=== PATIENT | female | born 1955 | race Caucasian/White ===

== ENCOUNTER → 2016-07-01 | Outpatient (CLI) | payer OTHER ==
[~2016-07-01] MED LIST: ACET-1311 PO; ATOR-22 PO; BACL10TA PO; BISA10SU5 RE; CHOL100010 PO; CPXI SQ; CYNI1000 SQ; DOCU100C31 PO; FURO40TA3 PO; GLAT1INJ INJ; HYDR-5688 PO; IPRASOL4 INH; LACTCAP3 PO; LISI-461 PO; LISI10TA PO; LORA-741 PO; MAGN400T6 PO; MGNO400 PO; MOML PO; OLAN10TA11 PO; OLAN1TAB13 PO; ONDA8TAB6 PO; PANC1CAP21 PO; PANCCAP2 PO; POTA-65 PO; POTA10TA PO; SENN1TAB65 PO; SERT-234 PO; SERT100T PO; SODIENE PR
--- NOTE | 2016-07-07 09:04 | CODING QUERY NO DIAGNOSIS ---
TREATMENT RENDERED WITHOUT A DIAGNOSIS : 1955 To promote full compliance with coding requirements relating to patient care, physician participation is requested in all cases of event mgr uncertainty. Please assist us with providing a diagnosis/symptom for the test(s) below: A diagnosis/symptom was not documented on your Order. A valid diagnosis/symptom is required to bill all insurances. Please remember that we are unable to code a diagnosis of rule out, probable, possible, questionable, or suspected. Tests that require a diagnosis: DOS: 07/01/16 * THYROID STIMULATING DIAGNOSIS: Provider Signature: Date: Thank you Dorcas Neumann Health Information Management Once completed, please kindly fax back to [phone] For questions please call [phone]
== END ==
LOC: C.LABUPUNI 10:47
PROVIDERS: ATTEND Family Medicine
DX: Z00.00 Encounter for general adult medical examination without abnormal findings (principal)

== ENCOUNTER → 2016-07-10 | Outpatient (CLI) | payer OTHER ==
[~2016-07-10] MED LIST changes: -GLAT1INJ INJ; -IPRASOL4 INH; -LISI10TA PO; -MAGN400T6 PO; -OLAN1TAB13 PO; -ONDA8TAB6 PO; -PANC1CAP21 PO; -POTA-65 PO; -SENN1TAB65 PO; -SERT-234 PO
[2016-07-10 08:45] LABS: BASO % 0.5 %; BASO ABS # 0.03 K/uL (0-0.2); COMPLETE YES; EOS % 3.6 %; HEMATOCRIT 31.6 % (37-47); IG% 0.2 %; LYMPH % 21.5 %; LYMPH ABS # 1.21 K/uL (1.2-3.4); MEAN CELL VOLUME 82.9 fL (80-100); MEAN CORPUSCULAR HEMOGLOBIN 26.2 pg (25-34); MEAN CORPUSCULAR HGB CONC 31.6 g/dl (32-36); MEAN PLATELET VOLUME 11.6 fL (7.4-10.4); NEUT % 68.2 %; PLATELET COUNT 180 K/uL (130-400); RED BLOOD COUNT 3.81 M/uL (4.2-5.4); WHITE BLOOD COUNT 5.63 K/uL (4.8-10.8)
[2016-07-10 08:53] LABS: ALT/SGPT 20 U/L (12-78); BLOOD UREA NITROGEN 22 mg/dl (7-18); BUN/CREATININE RATIO 22.5 (10-20); CALCIUM 9.3 mg/dl (8.5-10.1); CARBON DIOXIDE 29 mmol/L (21-32); CHLORIDE 103 mmol/L (98-107); CREATININE 0.99 mg/dl (0.60-1.20); GLUCOSE 135 mg/dl (70-99); POTASSIUM 4.3 mmol/L (3.5-5.1); SODIUM 140 mmol/L (136-145)
[2016-07-10 08:56] LABS: ALB/GLOB RATIO 0.7 (0.9-2); ALKALINE PHOSPHATASE 107 U/L (45-117); AST/SGOT 14 U/L (15-37)
== END ==
LOC: C.LABUPUNI 08:29
PROVIDERS: ATTEND Family Medicine
DX: G35 Multiple sclerosis (principal); L10.9 Pemphigus, unspecified

== ENCOUNTER → 2016-07-17 | Outpatient (CLI) | payer OTHER ==
[~2016-07-17] MED LIST changes: +GLAT1INJ INJ; +IPRASOL4 INH; +LISI10TA PO; +MAGN400T6 PO; +OLAN1TAB13 PO; +ONDA8TAB6 PO; +PANC1CAP21 PO; +POTA-65 PO; +SENN1TAB65 PO; +SERT-234 PO
[2016-07-17 09:12] LABS: CHOLESTEROL/HDL RATIO 3.1
== END ==
LOC: C.LABUPUNI 08:49
PROVIDERS: ATTEND Family Medicine
DX: E78.5 Hyperlipidemia, unspecified (principal)

== ENCOUNTER → 2016-08-08 | Outpatient (CLI) | payer OTHER ==
[2016-08-08 10:14] LABS: HEMATOCRIT 33.3 % (37-47)
[2016-08-08 10:26] LABS: FERRITIN 46.6 ng/ml (8.0-388.0)
--- NOTE | 2016-08-14 11:45 | CODING QUERY MEDICAL NECESSITY ---
CQSUPPORTING DIAGNOSIS NEEDED A supporting diagnosis is required for the test/procedure performed on this patient in order for us to be reimbursed by the patient's insurance. Please provide a supporting diagnosis for the following test/procedure listed below next to the test name along with your signature. *If there is no additional diagnosis for this patient that would support the following test/procedure please document that below next to the test/procedure. Test(s)/Procedure(s) that require a supporting diagnosis: [facility] 08/08/16 VITAMIN B12 SERUM IRON STUDY Provider Signature: Date: Thank you Bella Mello Health Information Management Once completed, please kindly fax back to [phone] For questions please call [phone]
== END ==
LOC: C.LABUPUNI 09:53
PROVIDERS: ATTEND Family Medicine
DX: I10 Essential (primary) hypertension (principal); E56.8 Deficiency of other vitamins; G35 Multiple sclerosis; D50.8 Other iron deficiency anemias

== ENCOUNTER → 2016-09-07 | Outpatient (CLI) | payer OTHER ==
[2016-09-07 10:11] LABS: HEMATOCRIT 32.8 % (37-47)
== END | disposition home or self-care (01) ==
LOC: C.LABUPUNI 08:56
PROVIDERS: ATTEND Family Medicine
DX: D50.8 Other iron deficiency anemias (principal)

== ENCOUNTER → 2016-10-09 | Outpatient (CLI) | payer OTHER ==
[~2016-10-09] MED LIST changes: -GLAT1INJ INJ; -IPRASOL4 INH; -LISI10TA PO; -MAGN400T6 PO; -OLAN1TAB13 PO; -ONDA8TAB6 PO; -PANC1CAP21 PO; -POTA-65 PO; -SENN1TAB65 PO; -SERT-234 PO
[2016-10-09 11:00] LABS: BASO % 0.4 %; BASO ABS # 0.02 K/uL (0-0.2); COMPLETE YES; HEMATOCRIT 33.5 % (37-47); LYMPH % 21.8 %; MEAN CELL VOLUME 83.8 fL (80-100); MEAN CORPUSCULAR HEMOGLOBIN 25.5 pg (25-34); MEAN CORPUSCULAR HGB CONC 30.4 g/dl (32-36); MEAN PLATELET VOLUME 11.7 fL (7.4-10.4); MONO % 5.5 %; NEUT % 68.3 %; PLATELET COUNT 157 K/uL (130-400); WHITE BLOOD COUNT 5.05 K/uL (4.8-10.8)
[2016-10-09 11:18] LABS: ALT/SGPT 16 U/L (12-78); AST/SGOT 9 U/L (15-37); BLOOD UREA NITROGEN 20 mg/dl (7-18); BUN/CREATININE RATIO 20.2 (10-20); CARBON DIOXIDE 28 mmol/L (21-32); CHLORIDE 107 mmol/L (98-107); CREATININE 0.97 mg/dl (0.60-1.20); GLUCOSE 129 mg/dl (70-99); POTASSIUM 3.6 mmol/L (3.5-5.1); SODIUM 142 mmol/L (136-145)
[2016-10-09 11:20] LABS: ALB/GLOB RATIO 0.8 (0.9-2); ALKALINE PHOSPHATASE 94 U/L (45-117)
--- NOTE | 2016-10-11 12:42 | CODING QUERY NO DIAGNOSIS ---
TREATMENT RENDERED WITHOUT A DIAGNOSIS To promote full compliance with coding requirements relating to patient care, physician participation is requested in all cases of product accountant uncertainty. Please assist us with providing a diagnosis/symptom for the test(s) below: A diagnosis/symptom was not documented on your Order. A valid diagnosis/symptom is required to bill all insurances. Please remember that we are unable to code a diagnosis of rule out, probable, possible, questionable, or suspected. DATE OF SERVICE: 10/09/16 Tests that require a diagnosis: * COMP. METABOLIC PROFILE DIAGNOSIS: * CBC DIAGNOSIS: Provider Signature: Date: Thank you Filomena Watts [facility] Information Management Once completed, please kindly fax back to [phone] For questions please call [phone]
== END ==
LOC: C.LABUPUNI 08:10
PROVIDERS: ATTEND Family Medicine
DX: G35 Multiple sclerosis (principal)

== ENCOUNTER → 2016-11-23 | Outpatient (CLI) | payer OTHER ==
[2016-11-23 09:57] LABS: BASO ABS # 0.05 K/uL (0-0.2); COMPLETE YES; EOS % 4.9 %; HEMATOCRIT 35.4 % (37-47); LYMPH % 23.3 %; LYMPH ABS # 1.15 K/uL (1.2-3.4); MEAN CELL VOLUME 85.3 fL (80-100); MEAN CORPUSCULAR HEMOGLOBIN 26.3 pg (25-34); MEAN CORPUSCULAR HGB CONC 30.8 g/dl (32-36); MEAN PLATELET VOLUME 12.4 fL (7.4-10.4); MONO % 8.3 %; NEUT % 62.5 %; PLATELET COUNT 170 K/uL (130-400); RED BLOOD COUNT 4.15 M/uL (4.2-5.4); WHITE BLOOD COUNT 4.93 K/uL (4.8-10.8)
[2016-11-23 10:10] LABS: FERRITIN 109.1 ng/ml (8.0-388.0)
== END | disposition home or self-care (01) ==
LOC: C.LABUPUNI 08:50
PROVIDERS: ATTEND Nurse Practitioner Family
DX: D50.9 Iron deficiency anemia, unspecified (principal)

== ENCOUNTER → 2016-12-04 | Outpatient (CLI) | payer OTHER | LOC: C.LABUPUNI 21:22 | PROVIDERS: ATTEND Nurse Practitioner Family | DX: R50.9 Fever, unspecified (principal) ==

== ENCOUNTER → 2016-12-05 | Outpatient (CLI) | payer OTHER ==
[2016-12-05 10:07] LABS: HEMATOCRIT 31.8 % (37-47); MEAN CELL VOLUME 84.8 fL (80-100); MEAN CORPUSCULAR HEMOGLOBIN 26.1 pg (25-34); MEAN CORPUSCULAR HGB CONC 30.8 g/dl (32-36); MEAN PLATELET VOLUME 10.6 fL (7.4-10.4); PLATELET COUNT 421 K/uL (130-400); RED BLOOD COUNT 3.75 M/uL (4.2-5.4); WHITE BLOOD COUNT 5.78 K/uL (4.8-10.8)
[2016-12-05 10:16] LABS: ALT/SGPT 28 U/L (12-78); AST/SGOT 25 U/L (15-37); BLOOD UREA NITROGEN 14 mg/dl (7-18); BUN/CREATININE RATIO 15.9 (10-20); CALCIUM 9.1 mg/dl (8.5-10.1); CARBON DIOXIDE 31 mmol/L (21-32); CHLORIDE 100 mmol/L (98-107); CREATININE 0.87 mg/dl (0.60-1.20); GLUCOSE 115 mg/dl (70-99); POTASSIUM 4.1 mmol/L (3.5-5.1); SODIUM 134 mmol/L (136-145)
[2016-12-05 10:19] LABS: ALB/GLOB RATIO 0.4 (0.9-2); ALKALINE PHOSPHATASE 129 U/L (45-117)
[2016-12-05 10:45] LABS: URINE APPEARANCE CLOUDY (CLEAR); URINE BILIRUBIN NEG (NEG); URINE COLOR YELLOW; URINE NITRITE POS (NEG); URINE SPECIFIC GRAVITY 1.013 (1.000-1.030); UROBILINOGEN NEG (NEG)
[2016-12-05 10:46] LABS: MANUAL MICROSCOPIC REQUIRED? NO; REVIEW REQ? NO
== END | disposition home or self-care (01) ==
LOC: C.LABUPUNI 09:27
PROVIDERS: ATTEND Nurse Practitioner Family
DX: R50.9 Fever, unspecified (principal)

== ENCOUNTER → 2016-12-22 | Outpatient (CLI) | payer OTHER ==
[2016-12-22 09:37] LABS: BASO % 0.7 %; BASO ABS # 0.03 K/uL (0-0.2); COMPLETE YES; HEMATOCRIT 34.1 % (37-47); IG% 0.2 %; LYMPH % 30.8 %; LYMPH ABS # 1.42 K/uL (1.2-3.4); MEAN CELL VOLUME 84.6 fL (80-100); MEAN CORPUSCULAR HEMOGLOBIN 25.8 pg (25-34); MEAN CORPUSCULAR HGB CONC 30.5 g/dl (32-36); MEAN PLATELET VOLUME 11.2 fL (7.4-10.4); MONO % 10.4 %; NEUT % 49.9 %; PLATELET COUNT 210 K/uL (130-400); RED BLOOD COUNT 4.03 M/uL (4.2-5.4); WHITE BLOOD COUNT 4.61 K/uL (4.8-10.8)
== END | disposition home or self-care (01) ==
LOC: C.LABUPUNI 09:09
PROVIDERS: ATTEND Nurse Practitioner Family
DX: G35 Multiple sclerosis (principal)

== ENCOUNTER → 2016-12-25 | Outpatient (CLI) | payer OTHER ==
[2016-12-25 08:36] LABS: BASO % 0.6 %; BASO ABS # 0.04 K/uL (0-0.2); COMPLETE YES; EOS % 6.8 %; HEMATOCRIT 35.3 % (37-47); IG% 0.3 %; LYMPH % 30.2 %; LYMPH ABS # 1.87 K/uL (1.2-3.4); MEAN CORPUSCULAR HEMOGLOBIN 25.7 pg (25-34); MEAN CORPUSCULAR HGB CONC 30.6 g/dl (32-36); MEAN PLATELET VOLUME 11.2 fL (7.4-10.4); MONO % 7.7 %; NEUT % 54.4 %; PLATELET COUNT 206 K/uL (130-400)
[2016-12-25 08:42] LABS: ALT/SGPT 17 U/L (12-78); BLOOD UREA NITROGEN 24 mg/dl (7-18); BUN/CREATININE RATIO 25.4 (10-20); CALCIUM 9.3 mg/dl (8.5-10.1); CARBON DIOXIDE 30 mmol/L (21-32); CHLORIDE 103 mmol/L (98-107); CREATININE 0.95 mg/dl (0.60-1.20); GLUCOSE 122 mg/dl (70-99); POTASSIUM 4.2 mmol/L (3.5-5.1); SODIUM 139 mmol/L (136-145)
[2016-12-25 08:45] LABS: ALB/GLOB RATIO 0.6 (0.9-2); ALKALINE PHOSPHATASE 109 U/L (45-117); AST/SGOT 14 U/L (15-37)
== END ==
LOC: C.LABUPUNI 08:19
PROVIDERS: ATTEND Nurse Practitioner Family
DX: K85.90 Acute pancreatitis without necrosis or infection, unspecified (principal); G35 Multiple sclerosis; I10 Essential (primary) hypertension

== ENCOUNTER → 2016-12-27 | Outpatient (CLI) | payer OTHER ==
[2016-12-27 11:34] LABS: ESTIMATED AVERAGE GLUCOSE 148 mg/dl; HA1C FLAG Normal (Normal)
--- NOTE | 2017-01-24 07:51 | CODING QUERY MEDICAL NECESSITY ---
SUPPORTING DIAGNOSIS NEEDED A supporting diagnosis is required for the test/procedure performed on this patient in order for us to be reimbursed by the patient's insurance. Please provide a supporting diagnosis for the following test/procedure listed below next to the test name along with your signature. *If there is no additional diagnosis for this patient that would support the following test/procedure please document that below next to the test/procedure. Test(s)/Procedure(s) that require a supporting diagnosis: * HEMOGLOBIN A1C DIAGNOSIS: Provider Signature: Date: Thank you Xiao Shell [employer] Information Management Once completed, please kindly fax back to [phone] For questions please call [phone]
== END | disposition home or self-care (01) ==
LOC: C.LABUPUNI 09:07
PROVIDERS: ATTEND Nurse Practitioner Family
DX: E03.9 Hypothyroidism, unspecified (principal); K85.90 Acute pancreatitis without necrosis or infection, unspecified

== ENCOUNTER → 2016-12-28 | Outpatient (CLI) | payer OTHER ==
[2016-12-28 09:51] LABS: URINE APPEARANCE CLEAR (CLEAR); URINE BILIRUBIN NEG (NEG); URINE COLOR YELLOW; URINE NITRITE POS (NEG); URINE SPECIFIC GRAVITY 1.016 (1.000-1.030); UROBILINOGEN NEG (NEG)
[2016-12-28 09:55] LABS: MANUAL MICROSCOPIC REQUIRED? NO; REVIEW REQ? YES
[2016-12-28 10:18] LABS: URINE EPITHELIAL CELL AUTO 0-5 /lpf (0-5)
== END | disposition home or self-care (01) ==
LOC: C.LABUPNIT 09:14
PROVIDERS: ATTEND Nurse Practitioner Family
DX: R41.0 Disorientation, unspecified (principal)

== ENCOUNTER → 2017-01-16 | Outpatient (CLI) | payer OTHER ==
[2017-01-16 10:09] LABS: HEMATOCRIT 40.6 % (37-47); MEAN CELL VOLUME 89.4 fL (80-100); MEAN CORPUSCULAR HGB CONC 29.1 g/dl (32-36); MEAN PLATELET VOLUME 12.1 fL (7.4-10.4); PLATELET COUNT 196 K/uL (130-400); RED BLOOD COUNT 4.54 M/uL (4.2-5.4); WHITE BLOOD COUNT 5.86 K/uL (4.8-10.8)
[2017-01-16 10:19] LABS: ALT/SGPT 21 U/L (12-78); BLOOD UREA NITROGEN 33 mg/dl (7-18); BUN/CREATININE RATIO 23.9 (10-20); CARBON DIOXIDE 29 mmol/L (21-32); CHLORIDE 106 mmol/L (98-107); GLUCOSE 96 mg/dl (70-99); POTASSIUM 4.4 mmol/L (3.5-5.1); SODIUM 142 mmol/L (136-145)
[2017-01-16 10:22] LABS: ALB/GLOB RATIO 0.8 (0.9-2); ALKALINE PHOSPHATASE 101 U/L (45-117); AST/SGOT 19 U/L (15-37)
== END | disposition home or self-care (01) ==
LOC: C.LABUPUNI 09:45
PROVIDERS: ATTEND Nurse Practitioner Family
DX: G35 Multiple sclerosis (principal); D50.9 Iron deficiency anemia, unspecified

== ENCOUNTER → 2017-01-17 | Outpatient (CLI) | payer OTHER ==
[2017-01-17 08:27] LABS: BLOOD UREA NITROGEN 30 mg/dl (7-18); BUN/CREATININE RATIO 27.2 (10-20); CALCIUM 9.7 mg/dl (8.5-10.1); CARBON DIOXIDE 30 mmol/L (21-32); CHLORIDE 106 mmol/L (98-107); GLUCOSE 163 mg/dl (70-99); POTASSIUM 3.9 mmol/L (3.5-5.1); SODIUM 143 mmol/L (136-145)
== END ==
LOC: C.LABUPUNI 07:50
PROVIDERS: ATTEND Nurse Practitioner Family
DX: M62.89 Other specified disorders of muscle (principal); I10 Essential (primary) hypertension

== ENCOUNTER → 2017-01-26 | Outpatient (CLI) | payer OTHER ==
[2017-01-26 08:55] LABS: BLOOD UREA NITROGEN 41 mg/dl (7-18); BUN/CREATININE RATIO 25.6 (10-20); CALCIUM 9.4 mg/dl (8.5-10.1); CARBON DIOXIDE 28 mmol/L (21-32); CHLORIDE 103 mmol/L (98-107); GLUCOSE 110 mg/dl (70-99); POTASSIUM 4.5 mmol/L (3.5-5.1); SODIUM 138 mmol/L (136-145)
== END ==
LOC: C.LABUPUNI 08:32
PROVIDERS: ATTEND Nurse Practitioner Family
DX: M62.81 Muscle weakness (generalized) (principal)

== ENCOUNTER → 2017-01-27 | Outpatient (CLI) | payer OTHER ==
[~2017-01-27] MED LIST changes: +GLAT1INJ INJ; +IPRASOL4 INH; +LISI10TA PO; +MAGN400T6 PO; +OLAN1TAB13 PO; +ONDA8TAB6 PO; +PANC1CAP21 PO; +POTA-65 PO; +SENN1TAB65 PO; +SERT-234 PO
[2017-01-27 06:43] LABS: BLOOD UREA NITROGEN 40 mg/dl (7-18); BUN/CREATININE RATIO 28.7 (10-20); CALCIUM 9.4 mg/dl (8.5-10.1); CARBON DIOXIDE 31 mmol/L (21-32); CHLORIDE 104 mmol/L (98-107); GLUCOSE 115 mg/dl (70-99); POTASSIUM 4.3 mmol/L (3.5-5.1); SODIUM 140 mmol/L (136-145)
[2017-01-27 07:12] LABS: LYME DISEASE AB IGG NEG (NEG); LYME DISEASE AB IGM NEG (NEG)
[2017-01-27 23:04] LABS: RAPID PLASMA REAGIN NONREACTIVE (NONREACT)
--- NOTE | 2017-02-09 09:51 | CODING QUERY NO DIAGNOSIS ---
TREATMENT RENDERED WITHOUT A DIAGNOSIS :1955 To promote full compliance with coding requirements relating to patient care, physician participation is requested in all cases of spinneret person uncertainty. Please assist us with providing a diagnosis/symptom for the test(s) below: A diagnosis/symptom was not documented on your Order. A valid diagnosis/symptom is required to bill all insurances. Please remember that we are unable to code a diagnosis of rule out, probable, possible, questionable, or suspected. Tests that require a diagnosis: DOS: 01/27/17 * PARTIAL RENAL PROFILE DIAGNOSIS: * THYROID STIMULATING DIAGNOSIS: * VITAMIN B12 DIAGNOSIS: * FOLIC ACID DIAGNOSIS: * LYME IGG & ICM +WB C DIAGNOSIS: * RAPID PLASMA REAGIN DIAGNOSIS: Provider Signature: Date: Thank you Dorcas Neumann Health Information Management Once completed, please kindly fax back to [phone] For questions please call [phone]
== END ==
LOC: C.LABUPUNI 12:09
PROVIDERS: ATTEND Nurse Practitioner Family
DX: Z00.00 Encounter for general adult medical examination without abnormal findings (principal)

== ENCOUNTER → 2017-01-30 | Outpatient (CLI) | payer OTHER ==
[~2017-01-30] MED LIST changes: -GLAT1INJ INJ; -IPRASOL4 INH; -LISI10TA PO; -MAGN400T6 PO; -OLAN1TAB13 PO; -ONDA8TAB6 PO; -PANC1CAP21 PO; -POTA-65 PO; -SENN1TAB65 PO; -SERT-234 PO
[2017-01-30 11:21] LABS: BLOOD UREA NITROGEN 25 mg/dl (7-18); BUN/CREATININE RATIO 24.3 (10-20); CALCIUM 9.7 mg/dl (8.5-10.1); CARBON DIOXIDE 26 mmol/L (21-32); CHLORIDE 106 mmol/L (98-107); CREATININE 1.01 mg/dl (0.60-1.20); GLUCOSE 125 mg/dl (70-99); POTASSIUM 4.4 mmol/L (3.5-5.1); SODIUM 139 mmol/L (136-145)
== END ==
LOC: C.LABUPUNI 10:19
PROVIDERS: ATTEND Nurse Practitioner Family
DX: I10 Essential (primary) hypertension (principal)

== ENCOUNTER → 2017-02-05 | Outpatient (CLI) | payer OTHER ==
[~2017-02-05] MED LIST changes: +GLAT1INJ INJ; +IPRASOL4 INH; +LISI10TA PO; +MAGN400T6 PO; +OLAN1TAB13 PO; +ONDA8TAB6 PO; +PANC1CAP21 PO; +POTA-65 PO; +SENN1TAB65 PO; +SERT-234 PO
[2017-02-05 10:15] LABS: HEMATOCRIT 34.7 % (37-47); MEAN CELL VOLUME 88.5 fL (80-100); MEAN CORPUSCULAR HEMOGLOBIN 28.8 pg (25-34); MEAN CORPUSCULAR HGB CONC 32.6 g/dl (32-36); MEAN PLATELET VOLUME 12.4 fL (7.4-10.4); PLATELET COUNT 154 K/uL (130-400); RED BLOOD COUNT 3.92 M/uL (4.2-5.4)
[2017-02-05 10:25] LABS: ALT/SGPT 16 U/L (12-78); BLOOD UREA NITROGEN 28 mg/dl (7-18); BUN/CREATININE RATIO 25.9 (10-20); CALCIUM 9.2 mg/dl (8.5-10.1); CARBON DIOXIDE 25 mmol/L (21-32); CHLORIDE 107 mmol/L (98-107); CREATININE 1.06 mg/dl (0.60-1.20); GLUCOSE 117 mg/dl (70-99); POTASSIUM 4.2 mmol/L (3.5-5.1); SODIUM 139 mmol/L (136-145)
[2017-02-05 10:36] LABS: ALB/GLOB RATIO 0.8 (0.9-2); ALKALINE PHOSPHATASE 102 U/L (45-117); AST/SGOT 10 U/L (15-37)
--- NOTE | 2017-02-09 13:29 | CODING QUERY MEDICAL NECESSITY ---
SUPPORTING DIAGNOSIS NEEDED A supporting diagnosis is required for the test/procedure performed on this patient in order for us to be reimbursed by the patient's insurance. Please provide a supporting diagnosis for the following test/procedure listed below next to the test name along with your signature. *If there is no additional diagnosis for this patient that would support the following test/procedure please document that below next to the test/procedure. Test(s)/Procedure(s) that require a supporting diagnosis: * VITAMIN B12 DIAGNOSIS: * VITAMIN D, 25-HYDROXY DIAGNOSIS: * FOLIC ACID DIAGNOSIS: Provider Signature: Date: Thank you Xiao Shell [employer] Information Management Once completed, please kindly fax back to [phone] For questions please call [phone]
== END | disposition home or self-care (01) ==
LOC: C.LABUPUNI 09:29
PROVIDERS: ATTEND Nurse Practitioner Family
DX: I10 Essential (primary) hypertension (principal); E03.9 Hypothyroidism, unspecified; E56.8 Deficiency of other vitamins; M62.81 Muscle weakness (generalized)

== ENCOUNTER → 2017-02-06 | Outpatient (CLI) | payer OTHER ==
[2017-02-06 10:41] LABS: HEMATOCRIT 35.5 % (37-47); MEAN CELL VOLUME 89.4 fL (80-100); MEAN CORPUSCULAR HEMOGLOBIN 27.2 pg (25-34); MEAN CORPUSCULAR HGB CONC 30.4 g/dl (32-36); MEAN PLATELET VOLUME 12.5 fL (7.4-10.4); PLATELET COUNT 160 K/uL (130-400); RED BLOOD COUNT 3.97 M/uL (4.2-5.4); WHITE BLOOD COUNT 6.71 K/uL (4.8-10.8)
[2017-02-06 10:49] LABS: BLOOD UREA NITROGEN 27 mg/dl (7-18); BUN/CREATININE RATIO 25.9 (10-20); CARBON DIOXIDE 26 mmol/L (21-32); CHLORIDE 108 mmol/L (98-107); CREATININE 1.03 mg/dl (0.60-1.20); GLUCOSE 124 mg/dl (70-99); POTASSIUM 4.3 mmol/L (3.5-5.1); SODIUM 140 mmol/L (136-145)
== END | disposition home or self-care (01) ==
LOC: C.LABUPUNI 10:08
PROVIDERS: ATTEND Nurse Practitioner Family
DX: K85.92 Acute pancreatitis with infected necrosis, unspecified (principal); I10 Essential (primary) hypertension

== ENCOUNTER → 2017-02-06 | Day surgery (SDC) | payer OTHER ==
[2017-02-05 14:30] VITALS: Ht 162.6 cm; Wt 85.5 kg
[~2017-02-06] VITALS: Ht 162.6 cm; Wt 85.5 kg
[~2017-02-06] MED LIST changes: -CPXI SQ; -DOCU100C31 PO; -FURO40TA3 PO; -HYDR-5688 PO; -LACTCAP3 PO; +LIDOCAINE HCL 2% 2 ML VIAL (20MG/ML) ONE; -LISI-461 PO; -MGNO400 PO; -OLAN10TA11 PO; +ONDANSETRON INJ 2 MG/ML 2 ML VIAL IV PRN; -PANCCAP2 PO; -POTA10TA PO; +PROPOFOL IV EMULSION 10 MG/ML 20 ML VIAL IV ONE; -SERT100T PO
--- NOTE | 2017-02-06 14:43 | Endo History and Physical ---
History & Physical Date of Service: Feb 06, 2017. Chief Complaint: Pancreatic Cyst with removal axios stent Referring Physician: Dr Garza at [facility] History of Present Illness Patient presenting to have upper endoscopy with stent removal from a cyst gastrostomy done at [facility] [place] 2 months ago. Past Medical History Gastrointestinal Disorder, Anxiety, High Cholesterol, Hypertension, Thyroid Disease, Other, Depression Past Surgical History Hx Cardiac Surgery: No Hx Internal Defibrillator: No Hx Pacemaker: No Hx Abdominal Surgery: Yes (LAP JAX) Hx of Implantable Prosthesis: No Hx Post-Op Nausea and Vomiting: No Hx Cancer Surgery: No Hx Thoracic Surgery: No Hx Orthopedic: No Hx Urinary Tract Surgery: No Social History Smoking Status: Unknown if Ever Smoked Hx Substance Use: No Hx Alcohol Use: No Allergies Coded Allergies: No Known Allergies (Verified , 02/05/17) Current Medications Reported Home Medications Medications Dose Route/Sig Max Daily Dose Days Date Category Dose Instructions Zyprexa (Olanzapine) 10 Mg Tab 10 Mg PO BID 02/05/17 Reported Zoloft (Sertraline HCl) 100 Mg Tab 100 Mg PO DAILY 02/05/17 Reported Zofran (Ondansetron HCl) 8 Mg Tab 8 Mg PO Q6H PRN 02/05/17 Reported Zenpep (Pancrelipase (Lipase-Protease-) 1 Cap Cap 1 Cap PO WITH MEALS 02/05/17 Reported Senna Plus (Sennosides-Docusate Sodium) 1 Tab Tab 1 Tab PO BID PRN 02/05/17 Reported Potassium Chloride ER (Potassium Chloride) 20 Meq Tab 1 Tab PO DAILY 02/05/17 Reported Milk Of Magnesia (Magnesium Hydroxide) 30 Ml Susp 30 Ml PO DAILY PRN 02/05/17 Reported Mag-Ox (Magnesium Oxide) 400 Mg Tab 400 Mg PO BID 02/05/17 Reported Ativan (Lorazepam) 0.5 Mg Tab 0.5 Mg PO DAILY PRN 02/05/17 Reported Prinivil (Lisinopril) 10 Mg Tab 10 Mg PO DAILY 02/05/17 Reported Lipitor (Atorvastatin Calcium) 20 Mg Tab 20 Mg PO DAILY 02/05/17 Reported Copaxone (Glatiramer Acetate) 40 Mg/Ml Inj 1 Dose INJ DIRECTED 02/05/17 Reported Duoneb (Ipratropium-Albuterol) 3 Ml Nebu 1 Treatment INH Q4H PRN 02/05/17 Reported Vitamin D (Cholecalciferol) 1,000 Unit Tab 2 Tab PO DAILY 02/05/17 Reported Fleet Enema (Sodium Phosphate/Biphosphate) Savana 1 Btl ND UD PRN 05/03/15 Reported IF DULCOLAX SUPPOSITORY IS INEFFECTIVE Bisacodyl 10 Mg Sup 1 Supp RE UD PRN 05/03/15 Reported NEEDED IF NO BM IN 4 DAYS & PRUNE AND MOM ARE INEFFECTIVE Tylenol (Acetaminophen) 325 Mg Tab 650 Mg PO Q6 PRN 05/03/15 Reported Lioresal (Baclofen) 10 Mg Tab 15 Mg PO TID 05/03/15 Reported Cyanocobalamin 1,000 Mcg/Ml Inj 1,000 Mcg SQ MONTHLY 05/03/15 Reported Vital Signs Weight (Kilograms): 85.45 Height (Feet): 0 Height (Inches): 64 Date Time Temp Pulse Resp B/P (MAP) Pulse Ox O2 Delivery O2 Flow Rate FiO2 02/06/17 14:27 36.9 79 18 104/73 (83) 95 Room Air Physical Exam General Appearance: no apparent distress Respiratory/Chest: Auscultation: deminished air movement Abdomen: Inspection & Palpation: soft, non-distended Assessment and Plan Patient presenting for upper endoscopy today for removal of an Axios Stent. We have discussed the risks to include bleeding, infection perforation and need for follow-up studies. We have also discussed the possibility that the stent cannot be removed requiring a procedure at [facility] in future.
--- NOTE | 2017-02-06 15:04 | Discharge Instructions ---
Endoscopy Patient Instructions Date / Procedure(s) Performed Feb 06, 2017. EGD Allergy Information Coded Allergies: No Known Allergies (Verified , 02/05/17) Discharge Date / Findings Feb 06, 2017. 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) Medication Instructions Reported Home Medications Medications Dose Route/Sig Max Daily Dose Days Date Category Dose Instructions Zyprexa (Olanzapine) 10 Mg Tab 10 Mg PO BID 02/05/17 Reported Zoloft (Sertraline HCl) 100 Mg Tab 100 Mg PO DAILY 02/05/17 Reported Zofran (Ondansetron HCl) 8 Mg Tab 8 Mg PO Q6H PRN 02/05/17 Reported Zenpep (Pancrelipase (Lipase-Protease-) 1 Cap Cap 1 Cap PO WITH MEALS 02/05/17 Reported Senna Plus (Sennosides-Docusate Sodium) 1 Tab Tab 1 Tab PO BID PRN 02/05/17 Reported Potassium Chloride ER (Potassium Chloride) 20 Meq Tab 1 Tab PO DAILY 02/05/17 Reported Milk Of Magnesia (Magnesium Hydroxide) 30 Ml Susp 30 Ml PO DAILY PRN 02/05/17 Reported Mag-Ox (Magnesium Oxide) 400 Mg Tab 400 Mg PO BID 02/05/17 Reported Ativan (Lorazepam) 0.5 Mg Tab 0.5 Mg PO DAILY PRN 02/05/17 Reported Prinivil (Lisinopril) 10 Mg Tab 10 Mg PO DAILY 02/05/17 Reported Lipitor (Atorvastatin Calcium) 20 Mg Tab 20 Mg PO DAILY 02/05/17 Reported Copaxone (Glatiramer Acetate) 40 Mg/Ml Inj 1 Dose INJ DIRECTED 02/05/17 Reported Duoneb (Ipratropium-Albuterol) 3 Ml Nebu 1 Treatment INH Q4H PRN 02/05/17 Reported Vitamin D (Cholecalciferol) 1,000 Unit Tab 2 Tab PO DAILY 02/05/17 Reported Fleet Enema (Sodium Phosphate/Biphosphate) Savana 1 Btl [place] UD PRN 05/03/15 Reported IF DULCOLAX SUPPOSITORY IS INEFFECTIVE Bisacodyl 10 Mg Sup 1 Supp RE UD PRN 05/03/15 Reported NEEDED IF NO BM IN 4 DAYS & PRUNE AND MOM ARE INEFFECTIVE Tylenol (Acetaminophen) 325 Mg Tab 650 Mg PO Q6 PRN 05/03/15 Reported Lioresal (Baclofen) 10 Mg Tab 15 Mg PO TID 05/03/15 Reported Cyanocobalamin 1,000 Mcg/Ml Inj 1,000 Mcg SQ MONTHLY 05/03/15 Reported Provider Instructions Activity Restrictions - No exercising or heavy lifting for 24 hours. - Do not drink alcohol the day of the procedure. - Do not drive a car or operate machinery until the day after the procedure. - Do not make any important decisions or sign important papers in 24 hours after the procedure. Following Day: - Return to full activity which may include returning to work/school. Diet Start your diet with liquids and light foods (jello, soup, juice, toast). Then eat your usual diet if not nauseated. Treatment For Common After Affects For mild abdominal pain, bloating, or excessive gas: - Rest - Eat lightly - Lie on right side Follow-Up Information Abdominal x-ray today If stent still in place will need [place] [facility] [place]possible migration into pseudocyst) Anesthesia Information What You Should Know You have had a procedure that required some medicine to reduce anxiety and discomfort. This treatment is called moderate sedation. After receiving the treatment, you may be sleepy, but you will be able to breathe on your own. The effects of the treatment may last for several hours. Follow these instructions along with Activity/Diet recommendations noted above: * Do NOT do anything where dizziness or clumsiness would be dangerous. * Rest quietly at home today, then you can be up and about tomorrow. * Have a responsible person stay with you the rest of today. * You may have had an I.V. today. If so, you may take the dressing off later today. Recommendations Call your doctor if: * Trouble breathing * Continuous vomiting for more than 24 hours * Temperature above 101 degrees * Severe abdominal pain or bloating * Pain not relieved by pain medicine ordered * There is increased drainage or redness from any incision * A large amount of rectal bleeding greater than 2-3 tablespoons. (If you had a polyp/s removed or have hemorrhoids, a small amount of blood - from the rectum is to be expected.) * You have any unanswered questions or concerns. IN THE EVENT OF A SERIOUS EMERGENCY, GO TO THE NEAREST EMERGENCY ROOM Your discharge instructions were prepared by provider Anil Serrano. Patient Instructions Signature Page Yuridia Aleman Patient (or Guardian) Signature/Date: I have read and understand the instructions given to me by my caregivers. Caregiver/RN/Doctor Signature/Date: The above-named patient and/or guardian has received patient instructions on this date. + Original Patient Signature Page (only) stays with chart. Please make copy for patient.
--- NOTE | 2017-02-06 15:14 | GI REPORT ---
Procedure Date: 02/06/2017 2:48 PM Procedure: Upper GI endoscopy Indications: Stent removal Medicines: Monitored Anesthesia Care Complications: No immediate complications. Estimated blood loss: Minimal. Estimated Blood Loss: Estimated blood loss was minimal. Procedure: Pre-Anesthesia Assessment: - Prior to the procedure, a History and Physical was performed, and patient medications, allergies and sensitivities were reviewed. The patient's tolerance of previous anesthesia was reviewed. - The risks and benefits of the procedure and the sedation options and risks were discussed with the patient. All questions were answered and informed consent was obtained. - Patient identification and proposed procedure were verified prior to the procedure by the physician, the nurse and the tafe registrar. The procedure was verified in the procedure room. - Pre-procedure physical examination revealed no contraindications to sedation. - ASA Grade Assessment: III - A patient with severe systemic disease. - After reviewing the risks and benefits, the patient was deemed in satisfactory condition to undergo the procedure. - The anesthesia plan was to use monitored anesthesia care (MAC). - Immediately prior to administration of medications, the patient was re-assessed for adequacy to receive sedatives. - The heart rate, respiratory rate, oxygen saturations, blood pressure, adequacy of pulmonary ventilation, and response to care were monitored throughout the procedure. - The physical status of the patient was re-assessed after the procedure. After obtaining informed consent, the endoscope was passed under direct vision. Throughout the procedure, the patient's blood pressure, pulse, and oxygen saturations were monitored continuously. The scope was introduced through the mouth, and advanced to the third part of duodenum. The upper GI endoscopy was accomplished without difficulty. The patient tolerated the procedure well. Findings: The examined esophagus was normal. A 6 mm fistula was found in the gastric antrum. The previously placed Axios stent could not be seen, I did try gentle pressure to visualize the pancreatic cyst and manipulation to identify the edge of the stent without success. The gastric fundus and gastric body were normal. Biopsies were taken with a cold forceps for histology. The duodenal bulb, 2nd part of the duodenum and 3rd part of the duodenum were normal. Impression: - Normal esophagus. - Gastric fistula, unable to identify the Axios Stent today. - Normal gastric fundus and gastric body. Biopsied. - Normal duodenal bulb, 2nd part of the duodenum and 3rd part of the duodenum. Recommendation: - Discharge patient to home (ambulatory). - Resume previous diet today. - KUB today to assess for stent position - If stent still in place with need referral to [facility] [place] repeat attempt. Anil Serrano D.O. Anil Serrano, 02/06/2017 3:13:45 PM This report has been signed electronically. Note Initiated On: 02/06/2017 2:48 PM I attest to the content of the Intraoperative Record and orders documented therein, exceptions below
[2017-02-06 15:30] VITALS: BP 121/72; PULSE 82; O2SAT 95
--- NOTE | 2017-02-06 15:31 | Anesthesiology Progress Note ---
Anesthesia Post Op Note Date & Time Feb 06, 2017 at 15:30 Vital Signs Vital Signs Past 12 Hours Date Time Temp Pulse Resp B/P (MAP) Pulse Ox O2 Delivery O2 Flow Rate FiO2 02/06/17 15:17 84 18 114/71 (85) 94 Room Air 02/06/17 15:07 81 18 101/66 (78) 95 Room Air 02/06/17 14:27 36.9 79 18 104/73 (83) 95 Room Air Notes Mental Status: alert / awake / arousable, participated in evaluation Pt Amnestic to Procedure: Yes Nausea / Vomiting: adequately controlled Pain: adequately controlled Airway Patency, RR, SpO2: stable & adequate BP & HR: stable & adequate Hydration State: stable & adequate Anesthetic Complications: no major complications apparent
--- NOTE | 2017-02-06 15:41 | DIAGNOSTIC IMAGING REPORT ---
KUB CLINICAL HISTORY: evaluation for axio stent (in pseudocyst) pain COMPARISON STUDY: 05/20/2015 FINDINGS: Nonobstructive bowel pattern. Several surgical clips in the right upper quadrant presumably from prior cholecystectomy. No evidence of bowel distention. No radiopaque density overlying the region of the pancreas, although there is a minimally radiopaque rounded structure having a diameter 2 cm overlying the left pedicle of L1. This potentially is in the region of the pancreas or represents bowel content. IMPRESSION: Nonobstructive bowel pattern.. Prior cholecystectomy. Possible cystic density overlying the left pedicle of L2 , possibly overlying the course of the pancreas versus bowel content The above report was generated using voice recognition software. It may contain grammatical, syntax or spelling errors. Electronically signed by: Memo Sanches M.D. 02/06/2017 3:40 PM Dictated Date/Time: 02/06/2017 3:37 PM
== END | disposition home or self-care (01) ==
LOC: C.GI 13:41
PROVIDERS: ATTEND Internal Medicine Gastroenterology
DX: K31.6 Fistula of stomach and duodenum (principal); I10 Essential (primary) hypertension; E78.00 Pure hypercholesterolemia, unspecified; E07.9 Disorder of thyroid, unspecified; F32.9 Major depressive disorder, single episode, unspecified; F41.9 Anxiety disorder, unspecified; Z79.899 Other long term (current) drug therapy

== ENCOUNTER → 2017-03-06 | Outpatient (CLI) | payer OTHER ==
[~2017-03-06] MED LIST changes: -LIDOCAINE HCL 2% 2 ML VIAL (20MG/ML) ONE; -ONDANSETRON INJ 2 MG/ML 2 ML VIAL IV PRN; -PROPOFOL IV EMULSION 10 MG/ML 20 ML VIAL IV ONE
[2017-03-06 10:18] LABS: BLOOD UREA NITROGEN 28 mg/dl (7-18); CALCIUM 9.2 mg/dl (8.5-10.1); CARBON DIOXIDE 29 mmol/L (21-32); CHLORIDE 105 mmol/L (98-107); CREATININE 0.92 mg/dl (0.60-1.20); GLUCOSE 108 mg/dl (70-99); POTASSIUM 4.3 mmol/L (3.5-5.1); SODIUM 141 mmol/L (136-145)
== END ==
LOC: C.LABUPUNI 08:55
PROVIDERS: ATTEND Nurse Practitioner Family
DX: I10 Essential (primary) hypertension (principal)

== ENCOUNTER → 2017-03-13 | Outpatient (CLI) | payer OTHER ==
[2017-03-13 09:02] LABS: BLOOD UREA NITROGEN 35 mg/dl (7-18); BUN/CREATININE RATIO 29.1 (10-20); CALCIUM 8.7 mg/dl (8.5-10.1); CARBON DIOXIDE 26 mmol/L (21-32); CHLORIDE 106 mmol/L (98-107); GLUCOSE 94 mg/dl (70-99); POTASSIUM 4.7 mmol/L (3.5-5.1); SODIUM 138 mmol/L (136-145)
== END ==
LOC: C.LABUPUNI 08:34
PROVIDERS: ATTEND Nurse Practitioner Family
DX: K85.92 Acute pancreatitis with infected necrosis, unspecified (principal)

== ENCOUNTER → 2017-03-16 | Outpatient (CLI) | payer OTHER ==
[2017-03-16 09:09] LABS: BASO % 0.6 %; BASO ABS # 0.04 K/uL (0-0.2); COMPLETE YES; EOS % 5.4 %; HEMATOCRIT 32.9 % (37-47); IG% 0.2 %; LYMPH % 26.3 %; LYMPH ABS # 1.66 K/uL (1.2-3.4); MEAN CELL VOLUME 92.2 fL (80-100); MEAN CORPUSCULAR HEMOGLOBIN 29.1 pg (25-34); MEAN CORPUSCULAR HGB CONC 31.6 g/dl (32-36); MONO % 7.9 %; NEUT % 59.6 %; PLATELET COUNT 172 K/uL (130-400); RED BLOOD COUNT 3.57 M/uL (4.2-5.4); WHITE BLOOD COUNT 6.32 K/uL (4.8-10.8)
== END ==
LOC: C.LABUPUNI 08:50
PROVIDERS: ATTEND Nurse Practitioner Family
DX: G35 Multiple sclerosis (principal)

== ENCOUNTER → 2017-03-20 | Outpatient (CLI) | payer OTHER ==
[2017-03-20 09:05] LABS: BLOOD UREA NITROGEN 34 mg/dl (7-18); BUN/CREATININE RATIO 35.7 (10-20); CALCIUM 9.2 mg/dl (8.5-10.1); CARBON DIOXIDE 29 mmol/L (21-32); CHLORIDE 105 mmol/L (98-107); CREATININE 0.96 mg/dl (0.60-1.20); GLUCOSE 106 mg/dl (70-99); POTASSIUM 4.4 mmol/L (3.5-5.1); SODIUM 139 mmol/L (136-145)
== END | disposition home or self-care (01) ==
LOC: C.LABUPNIT 08:36
PROVIDERS: ATTEND Nurse Practitioner Family
DX: I10 Essential (primary) hypertension (principal)

== ENCOUNTER → 2017-04-13 | Outpatient (CLI) | payer OTHER ==
[~2017-04-13] MED LIST changes: +IPRA-64 INH; -IPRASOL4 INH; +ONDA-170 PO; -ONDA8TAB6 PO
[2017-04-13 08:46] LABS: HEMATOCRIT 34.4 % (37-47); HEMOGLOBIN 10.7 g/dL (12.0-16.0); MEAN CELL VOLUME 93.2 fL (80-100); MEAN CORPUSCULAR HGB CONC 31.1 g/dl (32-36); MEAN PLATELET VOLUME 11.6 fL (7.4-10.4); PLATELET COUNT 188 K/uL (130-400); RED CELL DISTRIBUTION WIDTH CV 14.4 % (11.5-14.5); RED CELL DISTRIBUTION WIDTH SD 48.2 fL (36.4-46.3); WHITE BLOOD COUNT 5.93 K/uL (4.8-10.8)
== END ==
LOC: C.LABUPUNI 08:21
PROVIDERS: ATTEND Nurse Practitioner Family
DX: D50.9 Iron deficiency anemia, unspecified (principal)

== ENCOUNTER → 2017-04-20 | Outpatient (CLI) | payer OTHER ==
[~2017-04-20] MED LIST changes: -IPRA-64 INH; +IPRASOL4 INH; -ONDA-170 PO; +ONDA8TAB6 PO
[2017-04-20 09:57] LABS: BLOOD UREA NITROGEN 27 mg/dl (7-18); CALCIUM 9.3 mg/dl (8.5-10.1); CARBON DIOXIDE 27 mmol/L (21-32); CREATININE 0.84 mg/dl (0.60-1.20); GLUCOSE 108 mg/dl (70-99); POTASSIUM 4.1 mmol/L (3.5-5.1); SODIUM 139 mmol/L (136-145)
== END ==
LOC: C.LABUPUNI 08:23
PROVIDERS: ATTEND Nurse Practitioner Family
DX: I10 Essential (primary) hypertension (principal)

== ENCOUNTER → 2017-06-07 | Outpatient (CLI) | payer OTHER ==
[2017-06-07 08:55] LABS: BASO % 0.6 %; BASO ABS # 0.03 K/uL (0-0.2); EOS % 5.3 %; EOS ABS # 0.28 K/uL (0-0.5); HEMATOCRIT 35.5 % (37-47); HEMOGLOBIN 11.3 g/dL (12.0-16.0); IG# 0.01 K/uL (0.00-0.02); LYMPH % 25.2 %; LYMPH ABS # 1.33 K/uL (1.2-3.4); MEAN CELL VOLUME 90.3 fL (80-100); MEAN CORPUSCULAR HEMOGLOBIN 28.8 pg (25-34); MEAN CORPUSCULAR HGB CONC 31.8 g/dl (32-36); MEAN PLATELET VOLUME 11.8 fL (7.4-10.4); MONO % 9.3 %; MONO ABS # 0.49 K/uL (0.11-0.59); NEUT % 59.4 %; NEUT ABS # 3.14 K/uL (1.4-6.5); PLATELET COUNT 150 K/uL (130-400); RED CELL DISTRIBUTION WIDTH CV 14.6 % (11.5-14.5); RED CELL DISTRIBUTION WIDTH SD 48.6 fL (36.4-46.3); RETIC COUNT % 1.3 % (0.5-2.0); WHITE BLOOD COUNT 5.28 K/uL (4.8-10.8)
[2017-06-07 09:01] LABS: ALBUMIN 2.7 gm/dl (3.4-5.0); ALT/SGPT 19 U/L (12-78); BLOOD UREA NITROGEN 31 mg/dl (7-18); CALCIUM 8.8 mg/dl (8.5-10.1); CARBON DIOXIDE 28 mmol/L (21-32); CREATININE 0.94 mg/dl (0.60-1.20); GLUCOSE 107 mg/dl (70-99); POTASSIUM 4.2 mmol/L (3.5-5.1); SODIUM 141 mmol/L (136-145)
[2017-06-07 09:04] LABS: ALKALINE PHOSPHATASE 105 U/L (45-117); AST/SGOT 11 U/L (15-37); TOTAL PROTEIN 6.2 gm/dl (6.4-8.2)
== END ==
LOC: C.LABUPUNI 08:30
PROVIDERS: ATTEND Nurse Practitioner Family
DX: I10 Essential (primary) hypertension (principal); D50.9 Iron deficiency anemia, unspecified; G35 Multiple sclerosis

== ENCOUNTER → 2017-11-06 | Outpatient (CLI) | payer OTHER ==
[~2017-11-06] MED LIST changes: +IPRA-64 INH; -IPRASOL4 INH; +ONDA-170 PO; -ONDA8TAB6 PO
[2017-11-06 09:44] LABS: HEMATOCRIT 37.5 % (37-47); HEMOGLOBIN 11.6 g/dL (12.0-16.0); MEAN CELL VOLUME 92.6 fL (80-100); MEAN CORPUSCULAR HEMOGLOBIN 28.6 pg (25-34); MEAN CORPUSCULAR HGB CONC 30.9 g/dl (32-36); MEAN PLATELET VOLUME 11.7 fL (7.4-10.4); PLATELET COUNT 187 K/uL (130-400); RED CELL DISTRIBUTION WIDTH CV 14.6 % (11.5-14.5); RED CELL DISTRIBUTION WIDTH SD 49.7 fL (36.4-46.3); WHITE BLOOD COUNT 7.06 K/uL (4.8-10.8)
[2017-11-06 10:03] LABS: ALBUMIN 2.9 gm/dl (3.4-5.0); ALKALINE PHOSPHATASE 114 U/L (45-117); ALT/SGPT 20 U/L (12-78); AST/SGOT 14 U/L (15-37); BLOOD UREA NITROGEN 43 mg/dl (7-18); CALCIUM 9.2 mg/dl (8.5-10.1); CARBON DIOXIDE 29 mmol/L (21-32); CREATININE 1.08 mg/dl (0.60-1.20); GLUCOSE 122 mg/dl (70-99); POTASSIUM 4.4 mmol/L (3.5-5.1); SODIUM 140 mmol/L (136-145); TOTAL PROTEIN 6.7 gm/dl (6.4-8.2)
[2017-11-06 10:47] LABS: HEMOGLOBIN A1C 6.1 % (4.5-5.6)
== END | disposition home or self-care (01) ==
LOC: C.LABUPUNI 09:20
PROVIDERS: ATTEND Nurse Practitioner Family
DX: E03.9 Hypothyroidism, unspecified (principal); D50.9 Iron deficiency anemia, unspecified; E83.42 Hypomagnesemia

== ENCOUNTER → 2017-12-05 | Outpatient (CLI) | payer OTHER ==
[2017-12-05 08:17] LABS: BASO % 0.4 %; BASO ABS # 0.03 K/uL (0-0.2); EOS % 3.9 %; EOS ABS # 0.28 K/uL (0-0.5); HEMOGLOBIN 11.2 g/dL (12.0-16.0); IG# 0.02 K/uL (0.00-0.02); LYMPH % 19.8 %; LYMPH ABS # 1.44 K/uL (1.2-3.4); MEAN CELL VOLUME 91.1 fL (80-100); MEAN CORPUSCULAR HEMOGLOBIN 29.2 pg (25-34); MEAN PLATELET VOLUME 11.5 fL (7.4-10.4); MONO % 8.8 %; MONO ABS # 0.64 K/uL (0.11-0.59); NEUT % 66.8 %; NEUT ABS # 4.86 K/uL (1.4-6.5); PLATELET COUNT 178 K/uL (130-400); RED CELL DISTRIBUTION WIDTH CV 14.7 % (11.5-14.5); RED CELL DISTRIBUTION WIDTH SD 49.6 fL (36.4-46.3); RETIC COUNT % 1.4 % (0.5-2.0); WHITE BLOOD COUNT 7.27 K/uL (4.8-10.8)
== END ==
LOC: C.LABUPNIT 07:52
PROVIDERS: ATTEND Nurse Practitioner Family
DX: D50.9 Iron deficiency anemia, unspecified (principal)

== ENCOUNTER 2019-02-18 02:33 | Inpatient (IN) ==
[2019-02-18 03:08] LABS: Basophils # (auto) 0.02 K/uL (0-0.2); Basophils % (auto) 0.3 %; Eosinophils # (auto) 0.15 K/uL (0-0.5); Eosinophils % (auto) 2.3 %; Hematocrit (blood only) 46.8 % (37-47); Hemoglobin 15.2 g/dL (12.0-16.0); Immature Granulocytes # (auto) 0.01 K/uL (0.00-0.02); Immature Granulocytes % (auto) 0.2 %; Lymphocytes # (auto) 2.02 K/uL (1.2-3.4); Lymphocytes % (auto) 30.8 %; Mean Corpuscular Hgb Conc 32.5 g/dL (32-36); Mean Corpuscular Volume 92.5 fL (80-100); Mean Platelet Volume 12.1 fL (7.4-10.4); Monocytes # (auto) 0.52 K/uL (0.11-0.59); Monocytes % (auto) 7.9 %; Neutrophils # (auto) 3.84 K/uL (1.4-6.5); Neutrophils % (auto) 58.5 %; Platelet Count 186 K/uL (130-400); RDW Standard Deviation 54.2 fL (36.4-46.3); Red Blood Count 5.06 M/uL (4.2-5.4); White Blood Count 6.56 K/uL (4.8-10.8)
[2019-02-18 03:23] LABS: Appearance Urine Clear (Clear); Bacteria Urine Automated Negative (Negative); Blood Urine Negative (Negative); Color Urine Dark Yellow; Glucose Urine UA Negative (Negative); Ketones Urine Trace (Negative); Leukocyte Esterase Urine Negative (Negative); Nitrite Urine Negative (Negative); Protein Urine Trace (Negative); RBC Urine Automated 0-4 /hpf (0-4); Specific Gravity Urine 1.015 (1.000-1.030); Urobilinogen Urine Negative (Negative); pH Urine 5.5 (4.5-7.5)
[2019-02-18 03:29] LABS: Alanine Aminotransferase 30 U/L (12-78); Albumin Level 3.2 gm/dl (3.4-5.0); Aspartate Aminotransferase 17 U/L (15-37); BUN Creatinine Ratio 14.9 (10-20); Bilirubin Direct < 0.1 mg/dl (0-0.2); Blood Urea Nitrogen 27 mg/dl (7-18); Carbon Dioxide 29 mmol/L (21-32); Chloride 106 mmol/L (98-107); Creatinine Clr Calc Pharmacy 35.8 ml/min; Est GFR (African American) 33.9; Est GFR (Non-African American) 29.2; Glucose 155 mg/dl (70-99); Magnesium 2.1 mg/dl (1.8-2.4); Potassium 4.9 mmol/L (3.5-5.1); Sodium 140 mmol/L (136-145)
[2019-02-18 03:30] LABS: Bilirubin Urine Negative (Negative); Ictotest Urine Negative (Negative)
[2019-02-18] MEDS ORDERED: SODIUM CHLORIDE 0.9% 1000ML 1,000 ML IV ONE (03:32)
[2019-02-18 03:34] LABS: Alkaline Phosphatase 115 U/L (45-117); Bilirubin,Total 0.3 mg/dl (0.2-1); Troponin I < 0.015 ng/ml (0-0.045)
--- NOTE | 2019-02-18 05:06 | History & Physical Report ---
Date of Service February 18, 2019 Assessment & Plan (1) Altered mental status: NPO MRI brain PT/OT/Speech therapy evaluation This may be psychiatric. Meds held until able to assess swallowing function. (2) Acute kidney insufficiency: Will give IVF recheck kidney function. (3) Multiple sclerosis: using glatiramer. (4) HTN (hypertension): No issues currently will continue to monitor. History of Present Illness 63 y/o female brought to ED with reports of being unresponsive and having altered mental status. Patient has eyes closed and does not communicate. She is responding to painful stimuli. No history is able to be obtained. The nursing facility reports that the patients baseline is A,A&O x3. Primary Care Provider: [facility] Allergies Allergy/AdvReac Type Severity Reaction Status Date / Time No Known Allergies Allergy Verified 02/18/19 03:19 Home Medications Home Medications Medication Instructions Recorded Confirmed Type Liquid Protein Supplement 1 dose PO DAILY 02/18/19 02/18/19 History acetaminophen 650 mg PO Q6H PRN 02/18/19 02/18/19 History atorvastatin [Lipitor] 20 mg PO DAILY 02/18/19 02/18/19 History baclofen 15 mg PO TID 02/18/19 02/18/19 History bisacodyl [Dulcolax (bisacodyl)] 10 mg OR DAILY PRN 02/18/19 02/18/19 History cholecalciferol (vitamin D3) 5,000 unit PO DAILY 02/18/19 02/18/19 History [Vitamin D3] cyanocobalamin (vitamin B-12) 1,000 mcg SUBCUT MONTHLY 02/18/19 02/18/19 History ferrous fumarate 325 mg PO DAILY 02/18/19 02/18/19 History glatiramer 40 mg SUBCUT DIRECTED 02/18/19 02/18/19 History [id number] [Zenpep] 1 cap PO DIRECTED 02/18/19 02/18/19 History lisinopril 10 mg PO DAILY 02/18/19 02/18/19 History magnesium oxide 400 mg PO BID 02/18/19 02/18/19 History multivit,stress formula-zinc 1 tab PO DAILY 02/18/19 02/18/19 History [Stress Formula with Zinc] olanzapine [Zyprexa] 10 mg PO BID 02/18/19 02/18/19 History potassium chloride 20 meq PO DAILY 02/18/19 02/18/19 History sennosides-docusate sodium [Senna 1 tab-cap PO BID PRN 02/18/19 02/18/19 History Plus] sertraline [Zoloft] 200 mg PO DAILY 02/18/19 02/18/19 History Past Med/Surg History Medical History Multiple sclerosis (Chronic) Abdominal pain Fever HTN (hypertension) Hepatitis B carrier Hepatitis C carrier Pancreatic pseudocyst Pancreatitis (Acute) Sepsis Family History Other Family history non-contributory Social History Preferred Language: German Feels Safe at Home: Yes Smoking Status: Unknown if ever smoked Review of Systems Review of Systems: Unobtainable due to reduced consciousness Physical Exam Physical Exam: General- adult female sleeping, NAD. As I ask her questions, she is blinking frequently, but does not open eyes. Head- atraumatic Eyes- PERRL, anicteric ENT- oropharynx clear Neck- supple, no JVD, no adenopathy, no thyromegaly. Lungs- CTA b/l no R/R/W Heart- regular rhythm; no murmur, no gallop, no rub appreciated Abdomen- normal bowel sounds, soft, nontender. Extremities- no pretibial edema, no calf tenderness; peripheral pulses intact Neuro- Responsive to painful stimuli. Not compliant with neurologic exam. Skin- warm & dry Results & Data Vital Signs (Past 12 Hours) Vital Signs Temp Pulse Resp BP Pulse Ox 02/18/19 04:30 78 12 128/74 92 02/18/19 04:00 79 16 143/78 H 91 02/18/19 03:30 77 15 144/70 H 92 02/18/19 03:14 83 11 L 126/79 91 02/18/19 02:52 36.9 C 81 17 143/86 H 93 Laboratory Results Laboratory Results WBC 6.56 K/uL (4.8-10.8) 02/18/19 02:56 RBC 5.06 M/uL (4.2-5.4) 02/18/19 02:56 Hgb 15.2 g/dL (12.0-16.0) 02/18/19 02:56 Hct 46.8 % (37-47) 02/18/19 02:56 MCV 92.5 fL (80-100) 02/18/19 02:56 MCH 30.0 pg (25-34) 02/18/19 02:56 MCHC 32.5 g/dL (32-36) 02/18/19 02:56 RDW Std Deviation 54.2 fL (36.4-46.3) H 02/18/19 02:56 RDW Coeff of Butch 16.0 % (11.5-14.5) H 02/18/19 02:56 Plt Count 186 K/uL (130-400) 02/18/19 02:56 MPV 12.1 fL (7.4-10.4) H 02/18/19 02:56 Immature Gran % (Auto) 0.2 % 02/18/19 02:56 Neut % (Auto) 58.5 % 02/18/19 02:56 Lymph % (Auto) 30.8 % 02/18/19 02:56 [place] % (Auto) 7.9 % 02/18/19 02:56 Eos % (Auto) 2.3 % 02/18/19 02:56 Baso % (Auto) 0.3 % 02/18/19 02:56 Immature Gran # (Auto) 0.01 K/uL (0.00-0.02) 02/18/19 02:56 Neut # (Auto) 3.84 K/uL (1.4-6.5) 02/18/19 02:56 Lymph # (Auto) 2.02 K/uL (1.2-3.4) 02/18/19 02:56 [place] # (Auto) 0.52 K/uL (0.11-0.59) 02/18/19 02:56 Eos # (Auto) 0.15 K/uL (0-0.5) 02/18/19 02:56 Baso # (Auto) 0.02 K/uL (0-0.2) 02/18/19 02:56 Sodium 140 mmol/L (136-145) 02/18/19 02:56 Potassium 4.9 mmol/L (3.5-5.1) 02/18/19 02:56 Chloride 106 mmol/L (98-107) 02/18/19 02:56 Carbon Dioxide 29 mmol/L (21-32) 02/18/19 02:56 Anion Gap 5.0 (3-11) 02/18/19 02:56 BUN 27 mg/dl (7-18) H 02/18/19 02:56 Creatinine 1.80 mg/dl (0.6-1.2) H 02/18/19 02:56 Est Cr Clr Drug Dosing 35.8 ml/min 02/18/19 02:56 Est GFR ( Amer) 33.9 02/18/19 02:56 Est GFR (Non-Af Amer) 29.2 02/18/19 02:56 BUN/Creatinine Ratio 14.9 (10-20) 02/18/19 02:56 Glucose 155 mg/dl (70-99) H 02/18/19 02:56 Calcium 10.0 mg/dl (8.5-10.1) 02/18/19 02:56 Magnesium 2.1 mg/dl (1.8-2.4) 02/18/19 02:56 Total Bilirubin 0.3 mg/dl (0.2-1) 02/18/19 02:56 Direct Bilirubin < 0.1 mg/dl (0-0.2) 02/18/19 02:56 AST 17 U/L (15-37) 02/18/19 02:56 ALT 30 U/L (12-78) 02/18/19 02:56 Alkaline Phosphatase 115 U/L (45-117) 02/18/19 02:56 Troponin I < 0.015 ng/ml (0-0.045) 02/18/19 02:56 Total Protein 8.0 gm/dl (6.4-8.2) 02/18/19 02:56 Albumin 3.2 gm/dl (3.4-5.0) L 02/18/19 02:56 Urine Color Dark Yellow 02/18/19 03:07 Urine Appearance Clear (Clear) 02/18/19 03:07 Urine pH 5.5 (4.5-7.5) 02/18/19 03:07 Ur Specific [place] 1.015 (1.000-1.030) 02/18/19 03:07 Urine Protein Trace (Negative) H 02/18/19 03:07 Urine Glucose (UA) Negative (Negative) 02/18/19 03:07 Urine Ketones Trace (Negative) H 02/18/19 03:07 Urine Blood Negative (Negative) 02/18/19 03:07 Urine Nitrite Negative (Negative) 02/18/19 03:07 Urine Bilirubin Negative (Negative) 02/18/19 03:07 Urine Urobilinogen Negative (Negative) 02/18/19 03:07 Ur Leukocyte Esterase Negative (Negative) 02/18/19 03:07 Urine WBC (Auto) 1-5 /hpf (0-5) 02/18/19 03:07 Urine RBC (Auto) 0-4 /hpf (0-4) 02/18/19 03:07 U Hyaline Cast (Auto) 1-5 /lpf (0-5) 02/18/19 03:07 U Epithel Cells (Auto) 5-10 /lpf (0-5) H 02/18/19 03:07 Urine Bacteria (Auto) Negative (Negative) 02/18/19 03:07 Code Status & VTE Plan Code Status I noted that patient is full code per nursing facility records. VTE Prophylaxis Plan VTE Prophylaxis will be ordered: Yes PG Care Time/CCT Total # of Minutes Spent Total Time Spent: 55 Total Time Spent with Patient: Total time spent is greater than 50% in coordination of care (as documented) at patient's floor/unit and/or counseling patient: (1) Altered mental status Altered mental status type: unspecified Qualified Code(s): R41.82 - Altered mental status, unspecified
[2019-02-18] MEDS ORDERED: ONDANSETRON INJ 2 MG/ML 2 ML VIAL IV PRN (05:55)
--- NOTE | 2019-02-18 06:21 | Emergency Department Note ---
Entered by Yara Melchor acting as a scribe for Luis Duke MD ED Provider Note Name: Yuridia Aleman Age: 63 F Arrives Via: EMS Informant: EMS CC: altered mental status HPI: 63 year old female arrives for evaluation of altered mental status that occurred prior to arrival. EMS states that the patient's family observed that the patient was unresponsive and grew concerned. The patient is reported to usually be pretty alert and oriented however when EMS arrived and during transport EMS states patient was unresponsive. EMS reports observing left eye and face drooping. EMS confirms that vitals were stable during transport. ROS: See above HPI for pertinent positives & negatives. A total of 10 systems reviewed and were otherwise negative. Past Medical History: Multiple sclerosis, abdominal pain, hypertension, pancreatitis as well as others listed. Past Surgical History: None reported Family History: Family history non-contributory Social History: Never smoked Home Medications: See below Allergies No known allergies Physical: Vitals: BP 143/86, P 81, R 17, O2 93% on RA , Temp 36.9 Exam: GENERAL: Patient is well appearing and in no acute distress. Obtunded and periodically awakens to painful stimuli. Weakly open eyes to command. EYES: No scleral icterus, unremarkable pupils. ENT: Mucous membranes moist, no nasal congestion. NECK: No masses appreciated, no meningismus, trachea is midline. RESPIRATORY: No dyspnea. Clear to auscultation and equal bilaterally. No wheeze, no rhonchi. CARDIOVASCULAR: Regular rate and rhythm. No murmurs, rubs, gallops appreciated. GASTROINTESTINAL: Abdomen soft, non-tender, no peritonitis. Bowel sounds positive. No masses appreciated. BACK: No midline tenderness, no CVA tenderness EXTREMITIES: Normal motion all extremities, no cyanosis, no edema. NEUROLOGIC: Somnolent, no acute motor or sensory deficits, no focal weakness, cranial nerves grossly intact. GCS 13. SKIN: No rash, no jaundice, no diaphoresis. ED Course: Prior Medical Record, Triage/Nursing Notes, Medications, Allergies reviewed by Me Vital Signs: reviewed and remarkable for wnl Labs: Reviewed and remarkable for moderate renal insufficiency Interventions: saline lock, nss bolus 1 l IV Imaging: [facility] Radiologist interpretation reviewed by me: CT head no acute findings X ray results are stated below per my interpretation: Chest: 1 view: No infiltrate, no effusion, normal cardiac border. EKG: Per My Interpretation: Indication AMS: NSR 80 bpm qtc 435. No ectopy no ischemia. Similar to EKG 05/06/15 Blood pressure: Elevated - Referred to HOspitalist 0234: Past medical records reviewed. The patient was evaluated in room A2. A complete history and physical exam was performed. 0239: I reconfirmed with EMS that there was no time reported for when altered mental status was observed. 0359: I reviewed the patient's case with Dr. Crowell. He will evaluate the patient for further management. Consults: 0359: I reviewed the patient's case with Dr. Crowell. He will evaluate the patient for further management. Disposition: Hospitalization Differentials: Differential Diagnosis includes but is not limited to dehydration, stroke, anemia, hypoglycemia, hyponatremia, hypernatremia, urinary tract infection, pneumonia, bronchitis, sepsis, gastroenteritis, additional abdominal pathology, metabolic abnormalities and infections. Medical Decision Makin yr old female arrives for evaluation of acute worsening of mental status over the last 12 hours at halfway. History of MS with recent ED visit for UTI. CT head without acute findings. EKG OK. Labs with moderate renal insufficiency. No UTI found. Does not act meningitic and without fever or wbc elevation I do not feel LP indicated. Unclear etiology of AMS though will need to come in for further work-up and evaluation. Impression: Altered mental status Generalized weakness Acute kidney insufficiency The scribe's documentation has been prepared under my direction and personally reviewed by me in its entirety. I confirm that the note above accurately reflects all work, treatment, procedures, and medical decision making performed by me. Luis Duke MD Impression & Plan Altered mental status, Generalized weakness, Acute kidney insufficiency Past Med/Surg History Medical History Multiple sclerosis (Chronic) Abdominal pain Fever HTN (hypertension) Hepatitis B carrier Hepatitis C carrier Pancreatic pseudocyst Pancreatitis (Acute) Sepsis Family History Other Family history non-contributory Social History Preferred Language: Bermudian Feels Safe at Home: Yes Smoking Status: Unknown if ever smoked Results & Data Vital Signs Vital Signs - 24 hr 02/18/19 02:52 02/18/19 03:14 02/18/19 03:30 Temperature 36.9 C Temperature Source Oral Sepsis Recent Fever Within 48 Hours No Sepsis New/Unexplained Change in Mental Status No Sepsis Action Taken by Nursing No Action Required Pulse Rate 81 83 77 Pulse Rate from SpO2 Sensor 84 78 Respiratory Rate 17 11 L 15 Respiratory Effort / Characteristics Non-Labored Respiratory Depth Normal Respiratory Pattern Regular Blood Pressure 143/86 H 126/79 144/70 H Blood Pressure Mean 105 94 94 Pulse Oximetry 93 91 92 Oxygen Delivery Method Room Air Room Air Room Air 02/18/19 04:00 02/18/19 04:30 Temperature Temperature Source Sepsis Recent Fever Within 48 Hours Sepsis New/Unexplained Change in Mental Status Sepsis Action Taken by Nursing Pulse Rate 79 78 Pulse Rate from SpO2 Sensor 79 79 Respiratory Rate 16 12 Respiratory Effort / Characteristics Respiratory Depth Respiratory Pattern Blood Pressure 143/78 H 128/74 Blood Pressure Mean 99 92 Pulse Oximetry 91 92 Oxygen Delivery Method Room Air Room Air Laboratory Data Result diagrams: 02/18/19 02:56 02/18/19 02:56 Lab Results 02/18/19 02/18/19 02/18/19 Range/Units 02:56 02:56 03:07 WBC 6.56 (4.8-10.8) K/uL RBC 5.06 (4.2-5.4) M/uL Hgb 15.2 (12.0-16.0) g/dL Hct 46.8 (37-47) % MCV 92.5 (80-100) fL MCH 30.0 (25-34) pg MCHC 32.5 (32-36) g/dL RDW Std Deviation 54.2 H (36.4-46.3) fL RDW Coeff of Butch 16.0 H (11.5-14.5) % Plt Count 186 (130-400) K/uL MPV 12.1 H (7.4-10.4) fL Immature Gran % (Auto) 0.2 % Neut % (Auto) 58.5 % Lymph % (Auto) 30.8 % [place] % (Auto) 7.9 % Eos % (Auto) 2.3 % Baso % (Auto) 0.3 % Immature Gran # (Auto) 0.01 (0.00-0.02) K/uL Neut # (Auto) 3.84 (1.4-6.5) K/uL Lymph # (Auto) 2.02 (1.2-3.4) K/uL [place] # (Auto) 0.52 (0.11-0.59) K/uL Eos # (Auto) 0.15 (0-0.5) K/uL Baso # (Auto) 0.02 (0-0.2) K/uL Sodium 140 (136-145) mmol/L Potassium 4.9 (3.5-5.1) mmol/L Chloride 106 (98-107) mmol/L Carbon Dioxide 29 (21-32) mmol/L Anion Gap 5.0 (3-11) BUN 27 H (7-18) mg/dl Creatinine 1.80 H (0.6-1.2) mg/dl Est Cr Clr Drug Dosing 35.8 ml/min Est GFR ( Amer) 33.9 Est GFR (Non-Af Amer) 29.2 BUN/Creatinine Ratio 14.9 (10-20) Glucose 155 H (70-99) mg/dl Calcium 10.0 (8.5-10.1) mg/dl Magnesium 2.1 (1.8-2.4) mg/dl Total Bilirubin 0.3 (0.2-1) mg/dl Direct Bilirubin < 0.1 (0-0.2) mg/dl AST 17 (15-37) U/L ALT 30 (12-78) U/L Alkaline Phosphatase 115 (45-117) U/L Troponin I < 0.015 (0-0.045) ng/ml Total Protein 8.0 (6.4-8.2) gm/dl Albumin 3.2 L (3.4-5.0) gm/dl Urine Color Dark Yellow Urine Appearance Clear (Clear) Urine pH 5.5 (4.5-7.5) Ur Specific [place] 1.015 (1.000-1.030) Urine Protein Trace H (Negative) Urine Glucose (UA) Negative (Negative) Urine Ketones Trace H (Negative) Urine Blood Negative (Negative) Urine Nitrite Negative (Negative) Urine Bilirubin Negative (Negative) Urine Urobilinogen Negative (Negative) Ur Leukocyte Esterase Negative (Negative) Urine WBC (Auto) 1-5 (0-5) /hpf Urine RBC (Auto) 0-4 (0-4) /hpf U Hyaline Cast (Auto) 1-5 (0-5) /lpf U Epithel Cells (Auto) 5-10 H (0-5) /lpf Urine Bacteria (Auto) Negative (Negative) Administered Medications Discontinued Medications Sodium Chloride (Nss 1000ml) 1,000 mls @ 999 mls/hr IV .[id number] ONE Stop: 02/18/19 04:32 Last Infusion: 02/18/19 04:44 Dose: 0 mls/hr Documented by: [id number] Admin: 02/18/19 03:42 Dose: 999 mls/hr Documented by: [id number] Medical Decision Making Laboratory Data Result diagrams: 02/18/19 02:56 02/18/19 02:56 Lab Results 02/18/19 02/18/19 02/18/19 Range/Units 02:56 02:56 03:07 WBC 6.56 (4.8-10.8) K/uL RBC 5.06 (4.2-5.4) M/uL Hgb 15.2 (12.0-16.0) g/dL Hct 46.8 (37-47) % MCV 92.5 (80-100) fL MCH 30.0 (25-34) pg MCHC 32.5 (32-36) g/dL RDW Std Deviation 54.2 H (36.4-46.3) fL RDW Coeff of Butch 16.0 H (11.5-14.5) % Plt Count 186 (130-400) K/uL MPV 12.1 H (7.4-10.4) fL Immature Gran % (Auto) 0.2 % Neut % (Auto) 58.5 % Lymph % (Auto) 30.8 % [place] % (Auto) 7.9 % Eos % (Auto) 2.3 % Baso % (Auto) 0.3 % Immature Gran # (Auto) 0.01 (0.00-0.02) K/uL Neut # (Auto) 3.84 (1.4-6.5) K/uL Lymph # (Auto) 2.02 (1.2-3.4) K/uL [place] # (Auto) 0.52 (0.11-0.59) K/uL Eos # (Auto) 0.15 (0-0.5) K/uL Baso # (Auto) 0.02 (0-0.2) K/uL Sodium 140 (136-145) mmol/L Potassium 4.9 (3.5-5.1) mmol/L Chloride 106 (98-107) mmol/L Carbon Dioxide 29 (21-32) mmol/L Anion Gap 5.0 (3-11) BUN 27 H (7-18) mg/dl Creatinine 1.80 H (0.6-1.2) mg/dl Est Cr Clr Drug Dosing 35.8 ml/min Est GFR ( Amer) 33.9 Est GFR (Non-Af Amer) 29.2 BUN/Creatinine Ratio 14.9 (10-20) Glucose 155 H (70-99) mg/dl Calcium 10.0 (8.5-10.1) mg/dl Magnesium 2.1 (1.8-2.4) mg/dl Total Bilirubin 0.3 (0.2-1) mg/dl Direct Bilirubin < 0.1 (0-0.2) mg/dl AST 17 (15-37) U/L ALT 30 (12-78) U/L Alkaline Phosphatase 115 (45-117) U/L Troponin I < 0.015 (0-0.045) ng/ml Total Protein 8.0 (6.4-8.2) gm/dl Albumin 3.2 L (3.4-5.0) gm/dl Urine Color Dark Yellow Urine Appearance Clear (Clear) Urine pH 5.5 (4.5-7.5) Ur Specific [place] 1.015 (1.000-1.030) Urine Protein Trace H (Negative) Urine Glucose (UA) Negative (Negative) Urine Ketones Trace H (Negative) Urine Blood Negative (Negative) Urine Nitrite Negative (Negative) Urine Bilirubin Negative (Negative) Urine Urobilinogen Negative (Negative) Ur Leukocyte Esterase Negative (Negative) Urine WBC (Auto) 1-5 (0-5) /hpf Urine RBC (Auto) 0-4 (0-4) /hpf U Hyaline Cast (Auto) 1-5 (0-5) /lpf U Epithel Cells (Auto) 5-10 H (0-5) /lpf Urine Bacteria (Auto) Negative (Negative) [facility] Narrative Discharge Plan Visit Data *Final* Discharge Date/Time: 02/18/19 05:42 Chief Complaint: Unresponsive Stated Complaint: UNRESPONSIVE ED Provider: Luis Duke Discharge Problem: Altered mental status, Generalized weakness, Acute kidney insufficiency Patient Disposition: Admitted As Inpatient Discharge Instructions Interventions: ED Discharge Assessment Last Done: 02/18/19 05:42 Discharge Problem: Altered mental status Qualifiers: Altered mental status type: unspecified Qualified Code(s): R41.82 - Altered mental status, unspecified The scribe's documentation has been prepared under my direction and personally reviewed by me in its entirety. I confirm that the note above accurately reflects all work, treatment, procedures, and medical decision making performed by me.
[2019-02-18] MEDS: SODIUM CHLORIDE 0.9% 1000ML 1,000 ML IV SCH ×3 (06:33→21:33)
--- NOTE | 2019-02-18 06:33 | CT Scan Report ---
CT head/brain wo con CLINICAL HISTORY: Acute change in mental status COMPARISON STUDY: None TECHNIQUE: Axial CT of the brain is performed from the vertex to the skull base. IV contrast was not administered for this examination. A dose lowering technique was utilized adhering to the principles of ALARA. CT DOSE: 663.41 mGy.cm FINDINGS: No intra or extra-axial mass lesions are visualized. There is no CT evidence of acute cortical infarc tion. There is no evidence of midline shift. There is no acute hemorrhage. No calvarial fractures ar e visualized. There are minor white matter hypodensities likely on a small vessel basis. There is no evidence of pathologic ventricular dilatation. There is no evidence of acute sinusitis IMPRESSION: No acute intracranial findings Electronically signed by: Jin Cassidy M.D. 02/18/2019 6:32 AM
--- NOTE | 2019-02-18 07:15 | XRay Report ---
XR chest 1V portable CLINICAL HISTORY: 63 years-old Female presenting with AMS, unresponsive. TECHNIQUE: Portable upright AP view of the chest was obtained. COMPARISON: 05/07/2015. FINDINGS: Atherosclerosis of the aortic arch. Cardiac silhouette mildly enlarged, which may in part be due to l ow lung volumes and hypoventilatory changes. Pulmonary vascular prominence. Bronchial wall cuffing is also noted more so on the left. Minimal bibasilar opacities greater on the left similar to prior exa m. No new focal opacity. No large effusion or pneumothorax. Osseous structures normal. Upper abdomen normal. IMPRESSION: 1. Mild volume overload. 2. Bronchial wall thickening could relate to congestive change or bronchitis. No ghazal pulmonary kathy ma or focal infiltrate to suggest pneumonia. 3. Low lung volumes with hypoventilatory changes. 4. Chronic bibasilar opacities greater on the left likely scarring or atelectasis. Electronically signed by: Kendrick Drummond M.D. 02/18/2019 7:14 AM
[2019-02-18] MEDS: HEPARIN SOD 5,000 UNIT/0.5 ML VIAL SQ SCH ×3 (09:19→22:03)
--- NOTE | 2019-02-18 09:41 | Hospitalist Progress Note ---
Date of Service February 18, 2019 Assessment & Plan (1) Altered mental status: 63 y/o female was brought to the ED following being unresponsive and having altered mental status. Patient has eyes closed and does not communicate. She is responding to painful stimuli. No history is able to be obtained. The nursing facility reports that the patients baseline is A&O x3. Altered Mental Status: -NPO -recommended MRI brain unable to be done as uncertain past surgical history and presence of any metal devices. -PT/OT/Speech therapy evaluation: -CT scan negative for organic source of altered mental status -This may be psychiatric; has been refusing meals and medications at [facility] for the last several weeks according to family. Meds held until able to assess swallowing function. Multiple Sclerosis: -using glatiramer HTN: -no issues currently will continue to monitor (2) Acute kidney insufficiency: (3) Multiple sclerosis: (4) HTN (hypertension): Supervising Physician Co-Signing Physician Notes I saw the patient with the resident physician and confirmed campa portion of the history and physical exam. I agree with the impression and plan as noted above. Upon examination today, the patient will briefly open her eyes to my voice but then closes them. She does not respond to questions or commands. When I try to open her eyes to examine her pupils, she resist. When I raise her hand above her chest, hand will fall to her chest. When I raise her hand above her face, she will direct her hand to fall on her chest. She does not appear to be any distress. She is normotensive and hemodynamically stable. Impression Altered mental status, psychiatric versus neurological etiology, favor psychiatric Plan Neurology consultation appreciated; additional work-up is pending Will consider psychiatric consult tomorrow. Subjective Ms. Aleman is a 63 year old female with reports of being unresponsive and having altered mental status. She responds to painful stimuli with this provid er but does not respond to verbal stimuli. She also has a diagnosis of schizoaffecive disorder which she takes Zyprexa and has apparently been refusing doses since a break in January per family. Has frequently been refusing medications and meals for potentially days at a time; had a similar episode two years ago following misplacing some money that she had at [facility] and that resulted in an increased paranoia and hallucinations at that time. Recently had a new hearing aid that was beneficial to her but lost the hearing aid and then family noticed that this was continuing to progress. On baseline, when she is doing well she is very interactive with friends and family but has worsened during this last month or so Review of Systems Review of Systems: Unobtainable due to cognitive status Physical Exam Constitutional: well developed, well nourished and + lethargic Eyes: PERRL, conjunctivae normal, anicteric sclerae ENMT: external ear and nose normal, oropharynx normal Respiratory: normal respiratory effort, lungs clear to auscultation Cardiovascular: Rate/Rhythm: regular rate and regular rhythm Heart Sounds: normal S1 and normal S2; no gallop, no murmur and no cardiac rub Neurologic: deep tendon reflexes 2+ bilaterally, awake and + obtunded Psychiatric: Orientation: + not alert and + not oriented x 3 Apperance: + disheveled Eye Contact: + fair eye contact Speech: + mute Results & Data Vital Signs (Past 12 Hours) Vital Signs Temp Pulse Pulse Resp BP BP Pulse Ox 02/18/19 07:58 36.3 C L 69 20 137/81 95 02/18/19 06:19 36.6 C 71 16 137/85 97 02/18/19 05:55 36.6 C 68 71 17 137/85 97 02/18/19 05:42 74 12 108/62 94 02/18/19 05:33 70 13 108/62 93 02/18/19 05:26 89 L 02/18/19 05:00 72 12 100/62 92 02/18/19 04:30 78 12 128/74 92 02/18/19 04:00 79 16 143/78 H 91 02/18/19 03:30 77 15 144/70 H 92 02/18/19 03:14 83 11 L 126/79 91 02/18/19 02:52 36.9 C 81 17 143/86 H 93 Pulse Ox 02/18/19 07:58 02/18/19 06:19 02/18/19 05:55 97 02/18/19 05:42 02/18/19 05:33 02/18/19 05:26 02/18/19 05:00 02/18/19 04:30 02/18/19 04:00 02/18/19 03:30 02/18/19 03:14 02/18/19 02:52 Laboratory Results 02/18/19 02/18/19 02/18/19 Range/Units 03:07 02:56 02:56 WBC 6.56 (4.8-10.8) K/uL RBC 5.06 (4.2-5.4) M/uL Hgb 15.2 (12.0-16.0) g/dL Hct 46.8 (37-47) % MCV 92.5 (80-100) fL MCH 30.0 (25-34) pg MCHC 32.5 (32-36) g/dL RDW Std Deviation 54.2 H (36.4-46.3) fL RDW Coeff of Butch 16.0 H (11.5-14.5) % Plt Count 186 (130-400) K/uL MPV 12.1 H (7.4-10.4) fL Immature Gran % (Auto) 0.2 % Neut % (Auto) 58.5 % Lymph % (Auto) 30.8 % Calhoun % (Auto) 7.9 % Eos % (Auto) 2.3 % Baso % (Auto) 0.3 % Immature Gran # (Auto) 0.01 (0.00-0.02) K/uL Neut # (Auto) 3.84 (1.4-6.5) K/uL Lymph # (Auto) 2.02 (1.2-3.4) K/uL Calhoun # (Auto) 0.52 (0.11-0.59) K/uL Eos # (Auto) 0.15 (0-0.5) K/uL Baso # (Auto) 0.02 (0-0.2) K/uL Sodium 140 (136-145) mmol/L Potassium 4.9 (3.5-5.1) mmol/L Chloride 106 (98-107) mmol/L Carbon Dioxide 29 (21-32) mmol/L Anion Gap 5.0 (3-11) BUN 27 H (7-18) mg/dl Creatinine 1.80 H (0.6-1.2) mg/dl Est Cr Clr Drug Dosing 35.8 ml/min Est GFR ( Amer) 33.9 Est GFR (Non-Af Amer) 29.2 BUN/Creatinine Ratio 14.9 (10-20) Glucose 155 H (70-99) mg/dl Calcium 10.0 (8.5-10.1) mg/dl Magnesium 2.1 (1.8-2.4) mg/dl Total Bilirubin 0.3 (0.2-1) mg/dl Direct Bilirubin < 0.1 (0-0.2) mg/dl AST 17 (15-37) U/L ALT 30 (12-78) U/L Alkaline Phosphatase 115 (45-117) U/L Troponin I < 0.015 (0-0.045) ng/ml Total Protein 8.0 (6.4-8.2) gm/dl Albumin 3.2 L (3.4-5.0) gm/dl Urine Color Dark Yellow Urine Appearance Clear (Clear) Urine pH 5.5 (4.5-7.5) Ur Specific Empire 1.015 (1.000-1.030) Urine Protein Trace H (Negative) Urine Glucose (UA) Negative (Negative) Urine Ketones Trace H (Negative) Urine Blood Negative (Negative) Urine Nitrite Negative (Negative) Urine Bilirubin Negative (Negative) Urine Urobilinogen Negative (Negative) Ur Leukocyte Esterase Negative (Negative) Urine WBC (Auto) 1-5 (0-5) /hpf Urine RBC (Auto) 0-4 (0-4) /hpf U Hyaline Cast (Auto) 1-5 (0-5) /lpf U Epithel Cells (Auto) 5-10 H (0-5) /lpf Urine Bacteria (Auto) Negative (Negative) Medications Administered Current Inpatient Medications Heparin Sodium (Porcine) (Heparin Sodium (Porcine)) 5,000 units SQ Q8 [facility] Stop: 03/20/19 05:59 Last Admin: 02/18/19 09:19 Dose: 5,000 units Documented by: Sodium Chloride (Nss 1000ml) 1,000 mls @ 150 mls/hr IV .Q6H40M [facility] Stop: 03/20/19 05:54 Last Admin: 02/18/19 06:33 Dose: 150 mls/hr Documented by: Ondansetron HCl (Zofran) 4 mg IV Q6H PRN PRN Reason: nausea or vomiting Stop: 03/20/19 05:54 PG Care Time/CCT Total # of Minutes Spent Total Time Spent with Patient: Total time spent is greater than 50% in coordination of care (as documented) at patient's floor/unit and/or counseling patient: Resident Activity Tracking Resident Involvement: Resident Care Provided Care Provided: Adult Hospital Medicine (1) Altered mental status Altered mental status type: unspecified Qualified Code(s): R41.82 - Altered mental status, unspecified
--- NOTE | 2019-02-18 14:37 | Neurology Consultation ---
Date of Consultation February 18, 2019 Assessment & Plan (1) Altered mental status: 1. CT head- no obvious stroke- MRI when able may be helpful 2. continue Copaxone 40 mg 3 x per week 3. baclofen could be reduced but would not suddenly stop may produce rebound 4. CXR- chronic issues no pneumonia 5. needs psychiatry to see her for recommendations until she is able to take oral medications 6. no UTI 7. this is likely psychiatric related no neurology will be available as needed. 8. EEG- awake and drowsy- r/o seizure Supervising Physician Co-Signing Physician Notes Patient was seen and examined. No family at bedside. I agree with Melody Miranda PA-C as note above. Ms. Aleman is a 63 year old woman with history of multiple sclerosis on copaxone admitted for encephalopathy. Recent head CT was negative for acute hemorrhage or ischemic stroke. UA was Negative.She is afebrile. She does appear to have an KIAN on serum labs. On examine Patient non verbal, Awake alert. Intermittently smiling. Not following commands. No hippus. Pupils symmetric. No spontaneous nystagmus. Eyes are dysconjugate. SHe has bilateral ankle clonus. Tone is intact in the upper extremities. Tongue is midline. Unclear etiology of encephalopathy. Work up to date shows possible KIAN. Concern for possible functional or psychogenic component. Recommend MRI brain with and without IV contrast. Recommend routine EEG. Recommend checking blood cultures, thiamine, procalcitonin, and ammonia. Recommend starting thiamine IV. Progressive MS has been associated with cognitive decline although I do not believe this change in mental status is related to her prior diagnosis of MS. History of Present Illness Reason for Consultation: Encephalopathy Requesting Physician: Robert Crowell DO Attending Physician: Robert Crowell DO History of Present Illness Yuridia is a 63 year old female brought to ED with reports of being unresponsive and having altered mental status. She is responding to painful stimuli. 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 She also has a diagnosis of schizoeffecive disorder which she takes Zyprexa and has been refusing doses. Her sister is currently in the room and providing some information. She states he obsesses about things such as losing her hearing aid and blaming doctors for not making the right size, she didn't accept treatment right away for her MS and she obsesses about her current condition. She would not respond to verbal stimulation but when her sister came into room she opens her eyes and says "Beti Zuniga, why are you hear". when told she is in the hospital she tells her sister she is "funny". denies pain. Allergies Allergy/AdvReac Type Severity Reaction Status Date / Time No Known Allergies Allergy Verified 02/18/19 03:19 Home Medications Home Medications Medication Instructions Recorded Confirmed Type Liquid Protein Supplement 1 dose PO DAILY 02/18/19 02/18/19 History acetaminophen 650 mg PO Q6H PRN 02/18/19 02/18/19 History atorvastatin [Lipitor] 20 mg PO DAILY 02/18/19 02/18/19 History baclofen 15 mg PO TID 02/18/19 02/18/19 History bisacodyl [Dulcolax (bisacodyl)] 10 mg KS DAILY PRN 02/18/19 02/18/19 History cholecalciferol (vitamin D3) 5,000 unit PO DAILY 02/18/19 02/18/19 History [Vitamin D3] cyanocobalamin (vitamin B-12) 1,000 mcg SUBCUT MONTHLY 02/18/19 02/18/19 History ferrous fumarate 325 mg PO DAILY 02/18/19 02/18/19 History glatiramer 40 mg SUBCUT DIRECTED 02/18/19 02/18/19 History oxnekd-rrzbgoxy-lcimluh [Zenpep] 1 cap PO DIRECTED 02/18/19 02/18/19 History lisinopril 10 mg PO DAILY 02/18/19 02/18/19 History magnesium oxide 400 mg PO BID 02/18/19 02/18/19 History multivit,stress formula-zinc 1 tab PO DAILY 02/18/19 02/18/19 History [Stress Formula with Zinc] olanzapine [Zyprexa] 10 mg PO BID 02/18/19 02/18/19 History potassium chloride 20 meq PO DAILY 02/18/19 02/18/19 History sennosides-docusate sodium [Senna 1 tab-cap PO BID PRN 02/18/19 02/18/19 History Plus] sertraline [Zoloft] 200 mg PO DAILY 02/18/19 02/18/19 History Patient History Medical History Multiple sclerosis (Chronic) Abdominal pain Fever HTN (hypertension) Hepatitis B carrier Hepatitis C carrier Pancreatic pseudocyst Pancreatitis (Acute) Sepsis Family History Other Family history non-contributory Social History Preferred Language: [place] Communication Ability: Effective Cork Tile Floor Layer Required: No Beliefs That Will Affect Care: None Current Living Situation: Correction Feels Safe at Home: Yes Smoking Status: Never smoker Hx Alcohol Use: No Hx Substance Use: No Physical Exam Physical Exam: Gen: alert with stimuli NAD somnolent opens eye to voice from sister, but then goes back to sleep and snores. lungs course breath sounds CV RRR moves arms and legs with deep stimuli reflexes bilaterally UE/LE brisk not oriented to location or year down going toes. Results & Data Vital Signs (Past 12 Hours) Vital Signs Temp Pulse Pulse Resp BP BP Pulse Ox 02/18/19 11:38 36.6 C 67 18 142/81 H 98 02/18/19 07:58 36.3 C L 69 20 137/81 95 02/18/19 06:19 36.6 C 71 16 137/85 97 02/18/19 05:55 36.6 C 68 71 17 137/85 97 02/18/19 05:42 74 12 108/62 94 02/18/19 05:33 70 13 108/62 93 02/18/19 05:26 89 L 02/18/19 05:00 72 12 100/62 92 02/18/19 04:30 78 12 128/74 92 02/18/19 04:00 79 16 143/78 H 91 02/18/19 03:30 77 15 144/70 H 92 02/18/19 03:14 83 11 L 126/79 91 02/18/19 02:52 36.9 C 81 17 143/86 H 93 Pulse Ox 02/18/19 11:38 02/18/19 07:58 02/18/19 06:19 02/18/19 05:55 97 02/18/19 05:42 02/18/19 05:33 02/18/19 05:26 02/18/19 05:00 02/18/19 04:30 02/18/19 04:00 02/18/19 03:30 02/18/19 03:14 02/18/19 02:52 Laboratory Results Abnormal lab results 02/18/19 02/18/19 02/18/19 Range/Units 02:56 02:56 03:07 RDW Std Deviation 54.2 H (36.4-46.3) fL RDW Coeff of Butch 16.0 H (11.5-14.5) % MPV 12.1 H (7.4-10.4) fL BUN 27 H (7-18) mg/dl Creatinine 1.80 H (0.6-1.2) mg/dl Glucose 155 H (70-99) mg/dl Albumin 3.2 L (3.4-5.0) gm/dl Urine Protein Trace H (Negative) Urine Ketones Trace H (Negative) U Epithel Cells (Auto) 5-10 H (0-5) /lpf Diagnostic Findings CXR-Mild volume overload. Bronchial wall thickening could relate to congestive change or bronchitis. No ghazal pulmonary edema or focal infiltrate to suggest pneumonia. Low lung volumes with hypoventilatory changes. Chronic bibasilar opacities greater on the left likely scarring or atelectasis. CT head-No acute intracranial findings (1) Altered mental status Altered mental status type: unspecified Qualified Code(s): R41.82 - Altered mental status, unspecified
[2019-02-18] MEDS ORDERED: OLANZapine 10 MG/2.1 ML SDV IM PRN (19:09)
[2019-02-19] MEDS: SODIUM CHLORIDE 0.9% 1000ML 1,000 ML IV SCH ×3 (04:54→17:08)
[2019-02-19] MEDS ORDERED: MICONAZOLE NITRATE POWDER 43 GM EXT PRN (05:06)
[2019-02-19] MEDS: HEPARIN SOD 5,000 UNIT/0.5 ML VIAL SQ SCH ×3 (05:36→20:30)
[2019-02-19 08:17] LABS: Hematocrit (blood only) 42.3 % (37-47); Mean Corpuscular Hemoglobin 28.9 pg (25-34); Mean Corpuscular Hgb Conc 30.7 g/dL (32-36); Platelet Count 136 K/uL (130-400); White Blood Count 4.11 K/uL (4.8-10.8)
[2019-02-19] MEDS: THIAMINE HCL 200 MG in SODIUM CHLORIDE 0.9% 50 ML IV SCH (08:32)
[2019-02-19 08:46] LABS: BUN Creatinine Ratio 20.2 (10-20); Calcium 8.7 mg/dl (8.5-10.1); Creatinine Clr Calc Pharmacy 59.6 ml/min; Est GFR (African American) 62.1; Est GFR (Non-African American) 53.6; Magnesium 1.9 mg/dl (1.8-2.4); Potassium 4.2 mmol/L (3.5-5.1)
--- NOTE | 2019-02-19 12:29 | Hospitalist Progress Note ---
Date of Service February 19, 2019 Assessment & Plan (1) Altered mental status: 63 y/o female was brought to the ED following being unresponsive and having altered mental status. Patient has eyes closed and does not communicate. She is responding to painful stimuli. No history is able to be obtained. The nursing facility reports that the patients baseline is A&O x3. Altered Mental Status: -recommended MRI brain unable to be done as uncertain past surgical history and presence of any metal devices. -PT/OT/Speech therapy evaluation: was unable to complete evaluation due to patient spitting out attempts to evaluate swallow; keeping NPO at this time -Neurology consulted: likely not neurologic in nature, with recommended blood cultures, thiamine infusion, thiamine level, ammonia level, and procalcitonin -Psych consulted: given history of schizoaffective and current refusal to take medications; appreciate recommendations -CT scan negative for organic source of altered mental status -This may be psychiatric; has been refusing meals and medications at [facility] for the last several weeks according to family. Meds held until able to assess swallowing function. Multiple Sclerosis: -using glatiramer HTN: -no issues currently will continue to monitor (2) Acute kidney insufficiency: (3) Multiple sclerosis: using glatiramer. (4) HTN (hypertension): No issues currently will continue to monitor. Supervising Physician Co-Signing Physician Notes I saw the patient with the resident physician and confirmed campa portion of the history and physical exam. I agree with the impression and plan as noted above. Upon examination today, the patient will open her eyes. When I ask if she has any discomfort, she shakes her head no. When asked if I could do him make her more comfortable, she smiles and then says "everything." When I asked her if she could give me specific examples, she can smiles and says "nevermind." She does not appear to be any distress. She is normotensive and immediately sta ble. CBC and electrolytes are unremarkable. Ammonia is less than 10. Impression Altered mental status, psychiatric versus neurological etiology, favor psychiatric Plan Neurology consultation appreciated. Psychiatric consult pending. Subjective Pt is more aware this morning, and more responsive at this point in time as compared to yesterday; however, when asked questions she responds with inappropriate laughter and is unable to follow a conversation. When asked what can be done to help her feel more comfortable she responded, "Everything." followed by laughter to all further questions. Review of Systems Review of Systems: Unobtainable due to mental health condition Physical Exam Constitutional: well developed, well nourished and + lethargic Eyes: PERRL, conjunctivae normal, anicteric sclerae ENMT: external ear and nose normal, oropharynx normal Respiratory: normal respiratory effort, lungs clear to auscultation Cardiovascular: Rate/Rhythm: regular rate and regular rhythm Heart Sounds: normal S1 and normal S2; no gallop, no murmur and no cardiac rub Neurologic: deep tendon reflexes 2+ bilaterally, awake and + obtunded Psychiatric: Orientation: + not alert and + not oriented x 3 Apperance: + disheveled Eye Contact: + fair eye contact Insight: + limited insight Judgement: + limited judgement inappropriate laughter to this examiner with questioning Results & Data Vital Signs (Past 12 Hours) Vital Signs Temp Pulse Pulse Resp BP Pulse Ox 02/19/19 08:30 76 18 98 02/19/19 04:06 36.4 C L 82 20 113/70 93 02/19/19 00:47 79 Laboratory Results 02/19/19 02/19/19 02/19/19 Range/Units 08:03 08:03 08:03 WBC (4.8-10.8) K/uL RBC (4.2-5.4) M/uL Hgb (12.0-16.0) g/dL Hct (37-47) % MCV (80-100) fL MCH (25-34) pg MCHC (32-36) g/dL RDW Std Deviation (36.4-46.3) fL RDW Coeff of Butch (11.5-14.5) % Plt Count (130-400) K/uL MPV (7.4-10.4) fL Sodium (136-145) mmol/L Potassium (3.5-5.1) mmol/L Chloride (98-107) mmol/L Carbon Dioxide (21-32) mmol/L Anion Gap (3-11) BUN (7-18) mg/dl Creatinine (0.6-1.2) mg/dl Est Cr Clr Drug Dosing ml/min Est GFR ( Amer) Est GFR (Non-Af Amer) BUN/Creatinine Ratio (10-20) Glucose (70-99) mg/dl Calcium (8.5-10.1) mg/dl Magnesium (1.8-2.4) mg/dl Ammonia < 10.0 L (11-32) umol/L Whole Bld Vitamin B1 Pending Procalcitonin < 0.05 (0-0.5) ng/ml Nasal Screen MRSA (PCR) (Negative) 02/19/19 02/19/19 02/18/19 Range/Units 08:03 08:03 13:30 WBC 4.11 L (4.8-10.8) K/uL RBC 4.50 (4.2-5.4) M/uL Hgb 13.0 (12.0-16.0) g/dL Hct 42.3 (37-47) % MCV 94.0 (80-100) fL MCH 28.9 (25-34) pg MCHC 30.7 L (32-36) g/dL RDW Std Deviation 55.0 H (36.4-46.3) fL RDW Coeff of Butch 16.0 H (11.5-14.5) % Plt Count 136 (130-400) K/uL MPV 12.0 H (7.4-10.4) fL Sodium 144 (136-145) mmol/L Potassium 4.2 (3.5-5.1) mmol/L Chloride 115 H (98-107) mmol/L Carbon Dioxide 23 (21-32) mmol/L Anion Gap 6.0 (3-11) BUN 22 H (7-18) mg/dl Creatinine 1.09 (0.6-1.2) mg/dl Est Cr Clr Drug Dosing 59.6 ml/min Est GFR ( Amer) 62.1 Est GFR (Non-Af Amer) 53.6 BUN/Creatinine Ratio 20.2 H (10-20) Glucose 120 H (70-99) mg/dl Calcium 8.7 (8.5-10.1) mg/dl Magnesium 1.9 (1.8-2.4) mg/dl Ammonia (11-32) umol/L Whole Bld Vitamin B1 Procalcitonin (0-0.5) ng/ml Nasal Screen MRSA (PCR) Negative (Negative) Medications Administered Current Inpatient Medications Heparin Sodium (Porcine) (Heparin Sodium (Porcine)) 5,000 units SQ Q8 [facility] Stop: 12/05/19 05:59 Last Admin: 02/19/19 05:36 Dose: 5,000 units Documented by: Sodium Chloride (Nss 1000ml) 1,000 mls @ 100 mls/hr IV .Q10H [facility] Stop: 03/20/19 05:54 Last Admin: 02/19/19 08:32 Dose: 150 mls/hr Documented by: Thiamine HCl 200 mg/ Sodium (Chloride) 52 mls @ 208 mls/hr IV QAM [facility] Stop: 03/21/19 08:59 Last Infusion: 02/19/19 08:51 Dose: Infused Documented by: Miconazole Nitrate (Desenex) 1 appln EXT PRN PRN PRN Reason: Affected Skin Folds Stop: 03/21/19 05:05 Olanzapine (Zyprexa) 10 mg IM Q24H PRN PRN Reason: Agitation Stop: 03/20/19 19:08 Ondansetron HCl (Zofran) 4 mg IV Q6H PRN PRN Reason: nausea or vomiting Stop: 03/20/19 05:54 Resident Activity Tracking Resident Involvement: Resident Care Provided Care Provided: Adult Hospital Medicine (1) Altered mental status Altered mental status type: unspecified Qualified Code(s): R41.82 - Altered mental status, unspecified
--- NOTE | 2019-02-19 14:10 | Neurology Progress Note ---
Date of Service February 19, 2019 Assessment & Plan (1) Altered mental status: 1. CT head- no obvious stroke- MRI when able may be helpful- when patient becomes more cooperative MRI brain with and without contrast 2. continue Copaxone 40 mg 3 x per week 3. baclofen could be reduced but would not suddenly stop may produce rebound 4. CXR- chronic issues no pneumonia 5. needs psychiatry to see her for recommendations until she is able to take oral medications 6. no UTI 7. this is likely psychiatric related no neurology will be available as needed. 8. EEG- awake and drowsy- r/o seizure-- she refused study 9. ammonia <10.0, bun/creat 20.2, B1-pending but thiamine is being given IV, TSH 3.82, Vit D 58.2, procalcitonin <0.05 10. follow up with neurology as previously scheduled 11. will sign off for now but will be available for questions concerns Supervising Physician Co-Signing Physician Notes Patient was seen and examined. Awake and alert. She is speaking some today. Although mainly laughing intermittently. Speech is clear. Denies complaint. She refused EEG. KIAN improved. Procalcitonin Negative. Ammonia normal. Thiamine pending. BC NGTD. I believe this patient change in mentation is primarily psychogenic. No further neurological work up necessary at this time. Recommend to continue home Copaxone. Discontinue Balofen. Continue daily thiamine. Will consider stopping as outpatient based off level. Ok to discharge from neuro standpoint. Will sign off. Outpatient follow up in Neurology clinic as scheduled. Kan Shi is a 63 year old female brought to ED with reports of being unresponsive and having altered mental status. She is responding to painful stimuli. 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 She also has a diagnosis of schizoeffecive disorder which she takes Zyprexa and has been refusing doses. Her sister is currently in the room and providing some information. She states he obsesses about things such as losing her hearing aid and blaming doctors for not making the right size, she didn't accept treatment right away for her MS and she obsesses about her current condition. She would not respond to verbal stimulation but when her sister came into room she opens her eyes and says "Hi, Beti, why are you hear". when told she is in the hospital she tells her sister she is "funny". denies pain. Today there is no family in room. She is awake and alert and states she is in a hospital. All other questions she giggles instead of answering. She does not respond to other commands. denies pain,she also states she is not hungry. Physical Exam Physical Exam: Gen: alert smiles, giggles at most questions oriented to self and hospital lungs course breath sounds CV RRR does not respond to strength commands reflexes are brisk throughout, fine clonus bilaterally LE upgoing toes on right/left down going Results & Data Vital Signs (Past 12 Hours) Vital Signs Temp Pulse Resp BP Pulse Ox 02/19/19 12:52 78 18 138/77 95 02/19/19 08:30 76 18 98 02/19/19 04:06 36.4 C L 82 20 113/70 93 Laboratory Results Abnormal lab results 02/19/19 02/19/19 02/19/19 Range/Units 08:03 08:03 08:03 WBC 4.11 L (4.8-10.8) K/uL MCHC 30.7 L (32-36) g/dL RDW Std Deviation 55.0 H (36.4-46.3) fL RDW Coeff of Butch 16.0 H (11.5-14.5) % MPV 12.0 H (7.4-10.4) fL Chloride 115 H (98-107) mmol/L BUN 22 H (7-18) mg/dl BUN/Creatinine Ratio 20.2 H (10-20) Glucose 120 H (70-99) mg/dl Ammonia < 10.0 L (11-32) umol/L Diagnostic Findings no new imaging (1) Altered mental status Altered mental status type: unspecified Qualified Code(s): R41.82 - Altered mental status, unspecified
--- NOTE | 2019-02-19 16:29 | Psychiatric Consultation ---
Date of Consultation February 19, 2019 Impression / Recommendations Impression 63-year-old female admitted medically for altered mental status, with unknown etiology. Patient has reportedly been improving in regards to being awake and alert today; however, has continued to be altered and disoriented. Patient has reportedly been unable to participate in a constructive conversation. Psychiatric consultation is requested to evaluate patient for possible psychogenic contributions to her altered mental status, "schizo affective, bipolar; refusing psych meds." She remained unable to provide any beneficial history to this provider during our encounter today. It is reported that eva angulo's baseline is A&O x3 and that this presentation is highly unusual for the patient. Although this may be the case, her behavior is also not generally consistent with a diagnosis of schizoaffective disorder. She does not present as acutely psychotic, and there is no documentation of the patient responding to any internal stimuli. It would be helpful to gather collateral information from patient's caregivers at [facility] as well as family members to determine more details regarding her presentation. If acute onset of altered mental status, delirium or catatonia can be considered. It does seem appropriate to continue her scheduled antipsychotic medication until collateral information can be obtained. As patient is refusing medications, would suggest looking into any alternative decision maker for consideration of medications over objection, as patient is clearly not of a sound mind to make those decisions on her own. It is unclear at this time if patient has an appointed POA. Olanzapine could be provided IM or with utilization of an oral disintegrating tablet (Zyprexa Zydis) if this is a more tolerable route. We will continue to gather information from her side to determine if patient has a current outpatient psychiatrist and obtain additional information. Please reach out to our service with any questions or concerns that arise. We appreciate the opportunity to participate in the care of this patient. Dr. Yenni Lowry was directly involved in review and discussion of the patient's case and participated in medical decision making regarding treatment recommenda tions. RECOMMENDATIONS: 02/19 - Patient is refusing medications, and is deemed to lack capacity to make the decision to refuse home medications - Determine if patient has an appointed POA to make medical decisions on the patient's behalf - Would suggest continuing home dosage of olanzapine 10mg BID - IM option is formulary as well as Zyprexa Zydis, which is a dissolvable tablet - General delirium protocol regarding frequent reorientation to person, place, time, and event. Avoiding agents that can contribute to further confusion - Will attempt to gather collateral information to determine if this is better explained possible catatonia or other etiology Psych History Identifying Data 63-year-old female admitted medically on 02/18/19 from [facility] at [facility] due to concern for altered mental status. Patient's family reportedly noticed that she became unresponsive during a visit, and became concerned. Left eye and facial drooping was observed during transportation. Patient was admitted medically for workup to determine cause. Psychiatric consultation was requested to evaluate patient for "schizoaffective, bipolar; refusing psych meds." Information is gathered from hospital documentation, as patient is a poor historian at this time. Chief Complaint "Bed and batter." History of Present Illness Yuridia Aleman is a 63-year-old female admitted medically on 02/18/2019 from [facility] with reported altered mental status and concern for left eye and facial drooping. Patient was evaluated in the ED, and ultimately admitted medically for further workup and treatment. Neurology and psychiatry consultations were placed as the etiology of patient's altered mental status was unclear. Psychiatric consultation was requested for schizoaffective, bipolar; refusing psych meds." Patient reportedly takes 10 mg of Zyprexa twice daily, though it is believed that she has not been taking this medication regularly. At baseline, patient is reported to be alert and oriented x3. She has consistently been responding with inappropriate laughter during conversations with primary team and neurology. Patient was seen today on psychiatric consult to evaluate for altered mental status. Patient has a history of reported schizoaffective disorder, bipolar type for which she takes olanzapine 10 mg twice daily according to her home medication list. Patient open eyes with verbal stimuli upon this provider entering her room. When asked how she is feeling, the patient responded with "bed and batter", unable to explain to this provider what that meansrather questioning "what does it mean to you?" Patient states that she is not sure what brought her into the hospital. When asked if she has been feeling confused, the patient states "I do not know, sounds right." The patient displayed inappropriate smiling and laughter. When asked what she found humorous, the patient states "nothing is funny, everything is down." For most of this provider's questioning, patient did not provide any verbal response. Patient was asked to multiple ways if she has been compliant with her medications, and is unable to provide a reliable answer. Patient does deny any thoughts to harm herself or to end her life both prior to admission and here in the hospital. She denies having any questions for this provider, and denies other needs or concerns at this time. Past Psychiatric History Current Psychiatric Diagnosis: Reported diagnosis of schizoaffective disorder bipolar type Outpatient Services: Unknown. Patient has recent fill prescriptions for olanzapine 10 mg twice daily; however, no provider name is listed in external medication history. Previous Psych Admissions: [facility] - 04/1998 [facility] - [facility] Allergies Allergy/AdvReac Type Severity Reaction Status Date / Time No Known Allergies Allergy Verified 02/18/19 03:19 Home Medications Home Medications Medication Instructions Recorded Confirmed Type Liquid Protein Supplement 1 dose PO DAILY 02/18/19 02/18/19 History acetaminophen 650 mg PO Q6H PRN 02/18/19 02/18/19 History atorvastatin [Lipitor] 20 mg PO DAILY 02/18/19 02/18/19 History baclofen 15 mg PO TID 02/18/19 02/18/19 History bisacodyl [Dulcolax (bisacodyl)] 10 mg CO DAILY PRN 02/18/19 02/18/19 History cholecalciferol (vitamin D3) 5,000 unit PO DAILY 02/18/19 02/18/19 History [Vitamin D3] cyanocobalamin (vitamin B-12) 1,000 mcg SUBCUT MONTHLY 02/18/19 02/18/19 History ferrous fumarate 325 mg PO DAILY 02/18/19 02/18/19 History glatiramer 40 mg SUBCUT DIRECTED 02/18/19 02/18/19 History uqxdtl-rugjdekx-dgtjfnr [Zenpep] 1 cap PO DIRECTED 02/18/19 02/18/19 History lisinopril 10 mg PO DAILY 02/18/19 02/18/19 History magnesium oxide 400 mg PO BID 02/18/19 02/18/19 History multivit,stress formula-zinc 1 tab PO DAILY 02/18/19 02/18/19 History [Stress Formula with Zinc] olanzapine [Zyprexa] 10 mg PO BID 02/18/19 02/18/19 History potassium chloride 20 meq PO DAILY 02/18/19 02/18/19 History sennosides-docusate sodium [Senna 1 tab-cap PO BID PRN 02/18/19 02/18/19 History Plus] sertraline [Zoloft] 200 mg PO DAILY 02/18/19 02/18/19 History Family History Patient is unable to provide reliable information on the topic at time of assessment Substance Abuse History Patient is unable to provide reliable information on the topic at time of assessment Personal History Living Arrangements: [facility] Beliefs That Will Affect Care: None Patient History Medical History Multiple sclerosis (Chronic) Abdominal pain Fever HTN (hypertension) Hepatitis B carrier Hepatitis C carrier Pancreatic pseudocyst Pancreatitis (Acute) Sepsis Family History Other Family history non-contributory Social History Preferred Language: Hebrew Communication Ability: Effective Head Concierge Required: No Beliefs That Will Affect Care: None Current Living Situation: [facility] Feels Safe at Home: Yes Smoking Status: Never smoker Hx Alcohol Use: No Hx Substance Use: No Physical Exam Psychiatric: Orientation: alert and oriented to person; + uncooperative Apperance: appropriately dressed (In hospital gown) and + disheveled Left sided facial drooping is noted, specifically left eye droop Eye Contact: good eye contact (Staring) Speech: + abnormal rate/rhythm/volume of speech Brief responses to questions, difficult to understand, not able to participate in constructive conversation Affect: + labile affect (Inappropriate laughter for duration of visit) Thought Process: + thought process not linear or logical and + thought process not clear or coherent Suicidal Thoughts: denies suicidal thoughts, denies suicidal plan and denies suicidal intent Insight: + impaired insight Judgement: + impaired judgement Vital Signs (Past 24 Hours): Last Vital Signs Temp 36.9 C 02/19/19 15:36 Pulse 79 02/19/19 15:36 Resp 18 02/19/19 15:36 BP 148/79 H 02/19/19 15:36 Pulse Ox 93 02/19/19 15:36 Review of Systems Pt denies any physical symptoms at this time, reliability of ROS is questionable given level of disorientation. Results & Data Medications Administered Heparin Sodium (Porcine) (Heparin Sodium (Porcine)) 5,000 units SQ Q8 [facility] Stop: 03/20/19 05:59 Last Admin: 02/19/19 13:43 Dose: Not Given Documented by: [id number] Admin: 02/19/19 05:36 Dose: 5,000 units Documented by: [id number] Cosigned by: [id number] Admin: 02/18/19 22:03 Dose: 5,000 units Documented by: [id number] Cosigned by: [id number] Admin: 02/18/19 13:22 Dose: 5,000 units Documented by: [id number] Cosigned by: [id number] Admin: 02/18/19 09:19 Dose: 5,000 units Documented by: [id number] Cosigned by: [id number] Sodium Chloride (Nss 1000ml) 1,000 mls @ 100 mls/hr IV .Q10H [facility]ARG[facility] Stop: 03/20/19 05:54 Last Infusion: 02/19/19 13:44 Dose: 100 mls/hr Documented by: [id number] Admin: 02/19/19 08:32 Dose: 150 mls/hr Documented by: [id number] Infusion: 02/19/19 08:32 Dose: 150 mls/hr Documented by: [id number] Admin: 02/19/19 04:54 Dose: 150 mls/hr Documented by: [id number] Infusion: 02/19/19 04:14 Dose: 150 mls/hr Documented by: [id number] Admin: 02/18/19 21:33 Dose: 150 mls/hr Documented by: [id number] Infusion: 02/18/19 20:02 Dose: 150 mls/hr Documented by: [id number] Admin: 02/18/19 13:21 Dose: 150 mls/hr Documented by: [id number] Infusion: 02/18/19 13:14 Dose: 150 mls/hr Documented by: [id number] Admin: 02/18/19 06:33 Dose: 150 mls/hr Documented by: [id number] Thiamine HCl 200 mg/ Sodium (Chloride) 52 mls @ 208 mls/hr IV QAM [facility] Stop: 03/21/19 08:59 Last Infusion: 02/19/19 08:51 Dose: 0 mls/hr Documented by: [id number] Admin: 02/19/19 08:32 Dose: 208 mls/hr Documented by: [id number] Coding Level of Care Code 94035 [facility] Intl Hosp Care Lvl 2
[2019-02-20] MEDS: SODIUM CHLORIDE 0.9% 1000ML 1,000 ML IV SCH ×2 (03:40→11:01)
[2019-02-20] MEDS: HEPARIN SOD 5,000 UNIT/0.5 ML VIAL SQ SCH ×3 (06:17→21:18)
[2019-02-20 08:05] LABS: BUN Creatinine Ratio 17.8 (10-20); Calcium 8.5 mg/dl (8.5-10.1); Creatinine Clr Calc Pharmacy 78.5 ml/min; Est GFR (African American) 85.1; Est GFR (Non-African American) 73.4; Potassium 4.2 mmol/L (3.5-5.1)
[2019-02-20] MEDS: THIAMINE HCL 200 MG in SODIUM CHLORIDE 0.9% 50 ML IV SCH (10:48)
--- NOTE | 2019-02-20 13:36 | Communication Note ---
Date of Service: February 20, 2019 Records requested from [facility] at [facility] to better determine progression of reported altered mental status. Records reviewed and summarized below. Active psychiatric medications: olanzapine 10mg BID; sertraline 200mg daily Listed psychiatric diagnoses from 02/11/19: bipolar disorder, anxiety, major depression 01/28/19 - patient refused medications, reported UTI - blank stare, inappropriate laughter 01/29/19 - sister updated regarding refusal of medications the evening before, but did take them morning of 01/29; patient "becoming more baseline with some inappropriate giggling"; participated in activities 01/30/19 - symptoms of depression, laughing, staring, refusing medications; "delusional, stating she is all wet when she is not." Did take "important medications" (Zoloft, Zyprexa, Lisinopril) 01/31 - 02/01 - ongoing periodic refusal of medications; also participating in wound care to open areas of left thigh 02/02 - refused all medications, no oral intake due to "not being hungry" 02/03 - 02/11 - refusing care/vitals periodically, continues to refuse some medications; reportedly more "withdrawn" 02/11 - Progress note from [employer] - "refusing multiple medications, refusing to eat, having some increased behaviors and often questionable manic episodes." Stating patient had previously followed routinely with psychiatry, but had been stable with medications for quite some time. Is reportedly set up for psychiatric evaluation. Denies SI/HI. Running routine bloodwork, patient reportedly agreeable to PO intake. 02/14 - refusing medications
[2019-02-20] MEDS: SERTRALINE HCL 100 MG TABLET PO SCH (15:32)
[2019-02-20] MEDS: ATORVASTATIN 20 MG TAB PO SCH (15:33)
[2019-02-20] MEDS: FERROUS FUMARATE/ASCORBIC ACID 65 MG CAPCR PO SCH (15:33)
[2019-02-20] MEDS: LISINOPRIL 10 MG TAB PO SCH (15:33)
--- NOTE | 2019-02-20 16:59 | Hospitalist Progress Note ---
Date of Service February 20, 2019 Assessment & Plan (1) Altered mental status: 63 y/o female was brought to the ED following being unresponsive and having altered mental status. Patient has eyes closed and does not communicate. She is responding to painful stimuli. No history is able to be obtained. The nursing facility reports that the patients baseline is A&O x3. Altered Mental Status: -recommended MRI brain unable to be done as uncertain past surgical history and presence of any metal devices. -Speech therapy evaluation: able to tolerate regular diet without concern -Neurology consulted: likely not neurologic in nature, with recommended blood cultures, thiamine infusion, thiamine level, ammonia level, and procalcitonin -Psych consulted: given history of schizoaffective and refusal to take medications; appreciate recommendations -CT scan negative for organic source of altered mental status -home medications given as patient has returned to orientation and has indicated that she would like to resume her medications at this time Multiple Sclerosis: -using glatiramer HTN: -restarted home lisinopril Supervising Physician Co-Signing Physician Notes I saw the patient with the resident physician and confirmed campa portion of the history and physical exam. I agree with the impression and plan as noted above with additional information below. Collateral information is obtained from the patient's nursing facility and summarized in psychiatry's note today. The patient began refusing medications and having inappropriate laughter with some reports of delusions beginning in mid January. A psychiatric consult was to be arranged as an outpatient, but her mental status change progressed to the point where she was transferred from the [facility] to here for acute evaluation. Upon examination today, the patient is awake and will answer questions briefly. Her responses other brief are appropriate; she will frequently complete her answers with an inappropriate laugh. She denies pain. She is willing - at least tells me today - that she is willing to take medications. Impression Altered mental status Reported history of schizoaffective/bipolar Plan Collateral information obtained from nursing facility indicates a 3-week plus history of progressive psychiatric symptoms, including medication refusal. Will restart medications as listed in her outpatient records We will defer any changes to psychiatry. Subjective Patient feels better this morning, she acknowledges having seen this provider multiple times since her admission; unable to recall why she had been refusing her medications over the last several weeks. Had an increased appetite this morning, and was happy that she got some food. Would like to resume taking her medications at this time. Review of Systems Review of Systems: Unobtainable due to cognitive status Physical Exam Constitutional: well developed, well nourished and + lethargic Eyes: PERRL, conjunctivae normal, anicteric sclerae ENMT: external ear and nose normal, oropharynx normal Respiratory: normal respiratory effort, lungs clear to auscultation Cardiovascular: Rate/Rhythm: regular rate and regular rhythm Heart Sounds: normal S1 and normal S2; no gallop, no murmur and no cardiac rub Psychiatric: A+Ox3, euthymic affect Apperance: + disheveled Eye Contact: + fair eye contact Insight: + limited insight Judgement: + limited judgement inappropriate laughter to questioning Results & Data Vital Signs (Past 12 Hours) Vital Signs Temp Pulse Resp BP Pulse Ox 02/20/19 15:27 37.1 C 84 24 133/80 92 02/20/19 11:32 37.0 C 86 18 135/85 91 02/20/19 07:26 37.2 C 88 18 147/82 H 90 02/20/19 04:56 37.2 C 89 20 142/75 H 92 Laboratory Results 02/20/19 Range/Units 06:32 Sodium 146 H (136-145) mmol/L Potassium 4.2 (3.5-5.1) mmol/L Chloride 117 H (98-107) mmol/L Carbon Dioxide 22 (21-32) mmol/L Anion Gap 7.0 (3-11) BUN 15 (7-18) mg/dl Creatinine 0.84 (0.6-1.2) mg/dl Est Cr Clr Drug Dosing 78.5 ml/min Est GFR ( Amer) 85.1 Est GFR (Non-Af Amer) 73.4 BUN/Creatinine Ratio 17.8 (10-20) Glucose 120 H (70-99) mg/dl Calcium 8.5 (8.5-10.1) mg/dl Medications Administered Current Inpatient Medications Atorvastatin Calcium (Lipitor) 20 mg PO QAM [facility] Stop: 03/22/19 14:59 Last Admin: 02/20/19 15:33 Dose: 20 mg Documented by: Baclofen (Lioresal) 15 mg PO TID [facility] Stop: 03/22/19 20:59 Docusate Sodium/Ferrous Fumarate (Kait-Sequels) 65 mg PO QAM [facility] Stop: 03/22/19 14:59 Last Admin: 02/20/19 15:33 Dose: 65 mg Documented by: Heparin Sodium (Porcine) (Heparin Sodium (Porcine)) 5,000 units SQ Q8 [facility] Stop: 03/20/19 05:59 Last Admin: 02/20/19 14:33 Dose: 5,000 units Documented by: Thiamine HCl 200 mg/ Sodium (Chloride) 52 mls @ 208 mls[facility] Stop: 03/21/19 08:59 Last Infusion: 02/20/19 11:12 Dose: Infused Documented by: Lisinopril (Zestril) [facility] [place] Stop: 03/22/19 14:59 Last Admin: 02/20/19 15:33 Dose: 10 mg Documented by: Miconazole Nitrate (Desenex) 1 appln EXT PRN PRN PRN Reason: Affected Skin Folds Stop: 03/21/19 05:05 Last Admin: 02/19/19 20:30 Dose: 1 appln Documented by: Olanzapine (Zyprexa) 10 mg IM Q24H PRN PRN Reason: Agitation Stop: 03/20/19 19:08 Olanzapine (Zyprexa) 10 mg PO BID [facility] Stop: 03/22/19 20:59 Ondansetron HCl (Zofran) 4 mg IV Q6H PRN PRN Reason: nausea or vomiting Stop: 03/20/19 05:54 Sertraline HCl (Zoloft) 200 mg PO [facility] Stop: 03/22/19 14:59 Last Admin: 02/20/19 15:32 Dose: 200 mg Documented by: Resident Activity Tracking Resident Involvement: Resident Care Provided Care Provided: Adult Hospital Medicine (1) Altered mental status Altered mental status type: unspecified Qualified Code(s): R41.82 - Altered mental status, unspecified
[2019-02-20] MEDS: OLANZapine 10 MG TAB PO SCH (21:18)
[2019-02-20] MEDS: BACLOFEN 10 MG TAB PO SCH (21:37)
[2019-02-21 05:50] LABS: Basophils # (auto) 0.02 K/uL (0-0.2); Basophils % (auto) 0.4 %; Eosinophils % (auto) 2.2 %; Hematocrit (blood only) 36.8 % (37-47); Immature Granulocytes # (auto) 0.03 K/uL (0.00-0.02); Immature Granulocytes % (auto) 0.7 %; Lymphocytes # (auto) 1.24 K/uL (1.2-3.4); Lymphocytes % (auto) 27.2 %; Mean Corpuscular Hemoglobin 29.4 pg (25-34); Mean Corpuscular Hgb Conc 32.6 g/dL (32-36); Mean Corpuscular Volume 90.2 fL (80-100); Mean Platelet Volume 11.2 fL (7.4-10.4); Monocytes # (auto) 0.44 K/uL (0.11-0.59); Monocytes % (auto) 9.6 %; Neutrophils # (auto) 2.73 K/uL (1.4-6.5); Neutrophils % (auto) 59.9 %; Platelet Count 134 K/uL (130-400); RDW Coefficient of Variation 15.4 % (11.5-14.5); Red Blood Count 4.08 M/uL (4.2-5.4); White Blood Count 4.56 K/uL (4.8-10.8)
[2019-02-21 06:21] LABS: BUN Creatinine Ratio 14.3 (10-20); Creatinine Clr Calc Pharmacy 71.7 ml/min; Est GFR (African American) 76.3; Est GFR (Non-African American) 65.8; Potassium 3.9 mmol/L (3.5-5.1)
[2019-02-21] MEDS: HEPARIN SOD 5,000 UNIT/0.5 ML VIAL SQ SCH (06:42)
[2019-02-21] MEDS: BACLOFEN 10 MG TAB PO SCH (09:30)
[2019-02-21] MEDS: FERROUS FUMARATE/ASCORBIC ACID 65 MG CAPCR PO SCH (09:30)
[2019-02-21] MEDS: ATORVASTATIN 20 MG TAB PO SCH (09:31)
[2019-02-21] MEDS: SERTRALINE HCL 100 MG TABLET PO SCH (09:32)
[2019-02-21] MEDS: OLANZapine 10 MG TAB PO SCH (09:32)
[2019-02-21] MEDS: THIAMINE HCL 200 MG in SODIUM CHLORIDE 0.9% 50 ML IV SCH (09:36)
--- NOTE | 2019-02-21 09:45 | Discharge Summary ---
Date of Service February 21, 2019 Admission HPI Per Admitting Provider Yuridia Aleman is a 63-year-old female admitted medically on 02/18/2019 from [facility] with reported altered mental status and concern for left eye and facial drooping. Patient was evaluated in the ED, and ultimately admitted medically for further workup and treatment. Neurology and psychiatry consultations were placed as the etiology of patient's altered mental status was unclear. Psychiatric consultation was requested for schizoaffective, bipolar; refusing psych meds." Patient reportedly takes 10 mg of Zyprexa twice daily, though it is believed that she has not been taking this medication regularly. At baseline, patient is reported to be alert and oriented x3. She has consistently been responding with inappropriate laughter during conversations with primary team and neurology. Patient was seen today on psychiatric consult to evaluate for altered mental status. Patient has a history of reported schizoaffective disorder, bipolar type for which she takes olanzapine 10 mg twice daily according to her home medication list. Patient open eyes with verbal stimuli upon this provider entering her room. When asked how she is feeling, the patient responded with "bed and batter", unable to explain to this provider what that meansrather questioning "what does it mean to you?" Patient states that she is not sure what brought her into the hospital. When asked if she has been feeling confused, the patient states "I do not know, sounds right." The patient displayed inappropriate smiling and laughter. When asked what she found humorous, the patient states "nothing is funny, everything is down." For most of this provider's questioning, patient did not provide any verbal response. Patient was asked to multiple ways if she has been compliant with her medications, and is unable to provide a reliable answer. Patient does deny any thoughts to harm herself or to end her life both prior to admission and here in the hospital. She denies having any questions for this provider, and denies ot her needs or concerns at this time. Principal Diagnosis Altered Mental Status Discharge Exam Constitutional well developed, well nourished and + lethargic Eyes PERRL, conjunctivae normal, anicteric sclerae ENMT external ear and nose normal, oropharynx normal Respiratory normal respiratory effort, lungs clear to auscultation Cardiovascular Rate/Rhythm: regular rate and regular rhythm Heart Sounds: normal S1 and normal S2; no gallop, no murmur and no cardiac rub Neurologic deep tendon reflexes 2+ bilaterally, awake and + obtunded Psychiatric A+Ox3, euthymic affect Insight: + limited insight Judgement: + limited judgement in appropriate laughter to questions Discharge Data Allergies Allergy/AdvReac Type Severity Reaction Status Date / Time No Known Allergies Allergy Verified 02/18/19 03:19 Consultations 02/18/19 03:41 ED Decision to Admit Stat 02/18/19 11:49 Consult Neurology Routine 02/19/19 11:21 Consult Psychiatry Routine Ordered Studies 02/18/19 02:37 CT head/brain wo con Urgent Hospital Course (1) Altered mental status: 63 y/o female was brought to the ED following being unresponsive and having altered mental status. Patient has eyes closed and does not communicate. She is responding to painful stimuli. No history is able to be obtained. The nursing facility reports that the patients baseline is A&O x3. Altered Mental Status: -recommended MRI brain unable to be done as uncertain past surgical history and presence of any metal devices. -Speech therapy evaluation: able to tolerate regular diet without concern -Neurology consulted: likely not neurologic in nature, with recommended blood cultures, thiamine infusion, thiamine level, ammonia level, and procalcitonin -Psych consulted: given history of schizoaffective and refusal to take medications; appreciate recommendations -CT scan negative for organic source of altered mental status -home medications given as patient has returned to orientation and has indicated that she would like to resume her medications at this time Multiple Sclerosis: -using glatiramer HTN: -restarted home lisinopril Total Time Total Time Spent Total Time Spent (In Minutes): Please see attending attestation Discharge Plan Discharge Items Patient Disposition: Personal Residential Reason For Visit: AMS Discharge Diagnosis: Altered Mental Status Activity: Per Instructions section Non-emergency contact: Primary Care Provider Call non-emergency contact if: your symptoms worsen Follow-up/Referrals: [facility] [Primary Care Provider] - Diet: Regular Addtl Attending Provider Instructions: You were admitted following being unresponsive when talking with staff at [facility]; during this admission, we restarted the medicines that you had been refusing at [facility]. After restarting your medications you slowly returned to being conversive with staff here. As you are being discharged, it is important that you continue to take your medications while at [facility], to continue to prevent you from having similar type unresponsiveness. Pending Studies at Discharge: No Stand-Alone Forms: My [facility], Smoking Cessation Skilled Items Patient informed of condition?: Yes DNR: No Discharge Level of Care: Skilled Communicable Disease: No Discharge Prognosis: Stable Lines: None Urinary Catheter: No Medications and DC Order Prescriptions: Continued cyanocobalamin (vitamin B-12) 1,000 mcg/mL Solution 1,000 mcg SUBCUT MONTHLY RF: 0 ferrous fumarate 325 mg (106 mg iron) Tablet 325 mg PO DAILY RF: 0 atorvastatin [Lipitor] 20 mg Tablet 20 mg PO DAILY RF: 0 glatiramer 40 mg/mL Syringe 40 mg SUBCUT DIRECTED RF: 0 Liquid Protein Supplement 1 dose PO DAILY RF: 0 lisinopril 10 mg Tablet 10 mg PO DAILY RF: 0 potassium chloride 20 mEq Tablet Extended Release 20 meq PO DAILY RF: 0 Stress Formula with Zinc Tablet 1 tab PO DAILY RF: 0 cholecalciferol (vitamin D3) [Vitamin D3] 5,000 unit Tablet 5,000 unit PO DAILY RF: 0 sertraline [Zoloft] 100 mg Tablet 200 mg PO DAILY RF: 0 magnesium oxide 400 mg magnesium Tablet 400 mg PO BID RF: 0 sennosides-docusate sodium [Senna Plus] 8.6-50 mg Tablet 1 tab-cap PO BID PRN (Reason: Constipation) RF: 0 olanzapine [Zyprexa] 10 mg Tablet 10 mg PO BID RF: 0 baclofen 5 mg Tablet 15 mg PO TID RF: 0 Zenpep 5,000-17,000- 24,000 unit Capsule,Delayed Release(Dr/Ec) 1 cap PO DIRECTED RF: 0 acetaminophen 325 mg Tablet 650 mg PO Q6H PRN (Reason: pain/fever) RF: 0 bisacodyl [Dulcolax (bisacodyl)] 10 mg Suppository 10 mg CA DAILY PRN (Reason: Constipation) RF: 0 Discharge Orders: Discharge Order (Routine); Ordered 02/21/19 Ordered By: Alexis Mcdaniel Admission Data Admit Date/Time: 02/20/19 09:43 Attending Provider: Jerome Olson Admit Provider: Robert Crowell Primary Care Provider: [facility] Other Providers: Robert Crowell ; Javi Vázquez ; Yenni Lowry Other Interventions: Discharge Summary Assessment (RN) Last Done: 02/21/19 14:18 DC Date/Time DO NOT enter until pt leaves facility: 02/21/19 15:09 Supervising Physician Co-Signing Physician Notes Patient seen and examined with PGY-1 Dr. Mcdaniel. Agree with history, exam findings, assessment and plan as outlined. In brief, Ms. Aleman is a 63 year old female with hx of MS, schizoaffective, bipolar disorder admitted with altered mental status after refusing medications at [facility]. Her mental status is now improved and she has been placed back on her medications. She is amenable to returning to [facility] today. Appreciate psych and neurology input during her stay. Dispo: discharge back to [facility]. I personally spent 37 minutes discharge planning for this patient. Resident Activity Tracking Resident Involvement: Resident Care Provided Care Provided: Adult Hospital Medicine
[2019-02-21] MEDS: LISINOPRIL 10 MG TAB PO SCH (10:21)
== END 2019-02-21 15:09 | disposition home or self-care (01) | DRG 700 ==
LOC: 2N 02:33 → ED 02:33 → SUATTDRO 04:48 → 2N 05:42 → SUATTDRO 02-20 09:43